=== PATIENT | female | born 1995 | race Caucasian/White ===

== ENCOUNTER 2017-10-26 10:49 | Emergency (ER) | payer OTHER, SELFPAY | END 2017-10-26 15:13 | disposition home or self-care (01) | PROVIDERS: Emergency Provider Emergency Medicine; Family Provider Physician Assistant; Visit Provider Emergency Medicine | DX: N83.202 Unspecified ovarian cyst, left side (principal); N83.201 Unspecified ovarian cyst, right side; K59.00 Constipation, unspecified; N30.00 Acute cystitis without hematuria; F17.210 Nicotine dependence, cigarettes, uncomplicated | CPT/HCPCS: 74177; 80053; 81001; 81025; 82150; 83690; 85025; 87086; 96365; 96375; Q9967 ==

== ENCOUNTER → 2017-11-13 12:46 | Outpatient (CLI) | payer OTHER, SELFPAY ==
[2017-11-14 20:10] LABS: Varicella Zoster IgG 837 index (Immune >165)
== END ==
PROVIDERS: PCP Physician Assistant; Visit Provider Nurse Practitioner Family
DX: Z11.59 Encounter for screening for other viral diseases (principal)
CPT/HCPCS: 36415; 86787

== ENCOUNTER → 2019-01-27 14:23 | Outpatient (CLI) | payer OTHER, SELFPAY ==
--- NOTE | 2019-01-27 14:28 | XR_ITS ---
XR wrist RT 2V HISTORY: Right wrist pain ITS.REASON: RT HAND PAIN, ORDERING PHYSICIAN: Cristy Pham PATIENT AGE: 23 years COMPARISON: None FINDINGS: No fracture or dislocation. No lytic or blastic change. There is normal mineralization.. The joint spaces are well-preserved. No significant degenerative/arthritic changes. No erosive changes evident.. IMPRESSION: Negative wrist
--- NOTE | 2019-01-27 14:28 | XR_ITS ---
XR hand RT min 3V HISTORY: ITS.REASON: RT HAND PAIN ORDERING PHYSICIAN: Cristy Pham PATIENT AGE: 23 years COMPARISON: None FINDINGS: No fracture or dislocation. No lytic or blastic change. There is normal mineralization.. The joint spaces are well-preserved. No significant degenerative/arthritic changes. No erosive changes evident.. IMPRESSION: Negative, no acute finding
== END ==
PROVIDERS: PCP Nurse Practitioner Family; Visit Provider Nurse Practitioner Family
DX: M25.541 Pain in joints of right hand (principal)
CPT/HCPCS: 73100; 73130

== ENCOUNTER → 2019-10-07 10:44 | Outpatient (CLI) | payer OTHER, SELFPAY ==
[2019-10-09 10:18] LABS: Neisseria gonorrhoeae, NAA Negative (Negative)
== END ==
PROVIDERS: Visit Provider Nurse Practitioner Obstetrics & Gynecology
DX: N89.8 Other specified noninflammatory disorders of vagina (principal); Z72.51 High risk heterosexual behavior
CPT/HCPCS: 87491; 87591

== ENCOUNTER → 2020-09-29 09:50 | Outpatient (CLI) | payer OTHER, SELFPAY ==
--- NOTE | 2020-09-29 10:08 | US_ITS ---
PROCEDURE: US BREAST LT COMPLETE CLINICAL INDICATION: LEFT BREAST LUMP COMPARISON: No exams were available for comparison FINDINGS: Ultrasound performed of the left breast showed no cystic or solid lesions. Small nodes are present in the axilla. Palpable area is the 11 o'clock. Echodense tissue noted at this area. IMPRESSION: Unremarkable ultrasound of the left breast. Ultrasound does not exclude the possibility of malignancy. If there is indeed a palpable nodule then further investigation is suggested. Dictated by: Vick Nelson MD 10/06/2020 18:46 Vick Nelson MD in [place] 10/06/2020 18:46
== END ==
PROVIDERS: PCP Nurse Practitioner Family; Visit Provider Nurse Practitioner
DX: N63.20 Unspecified lump in the left breast, unspecified quadrant (principal)
CPT/HCPCS: 76641

== ENCOUNTER → 2020-10-09 17:58 | Outpatient (CLI) | payer OTHER, SELFPAY ==
[2020-10-09 17:58] LABS: Microscopic, Urine URINE MICROSCOPIC (MICROSCOPIC)
[2020-10-09 19:09] LABS: Appearance,Urine CLEAR (Clear); Bilirubin,Urine Negative (Negative); Blood, Urine Negative (Negative); Color,Urine YELLOW (Yellow); Glucose,Urine (UA) Negative (Negative); Ketones,Urine Negative (Negative); Leukocyte Esterase,Urine Negative (Negative); Nitrate,Urine Negative (Negative); Protein,Urine Negative (Negative); Specific Gravity, Urine 1.015 (1.005-1.030); Urobilinogen,Urine 0.2 EU/dl (0.2)
== END ==
LOC: LAB 17:58 → LAB.DROPOF 10-10 07:53
PROVIDERS: Visit Provider Nurse Practitioner Obstetrics & Gynecology
DX: Z34.90 Encounter for supervision of normal pregnancy, unspecified, unspecified trimester (principal)
CPT/HCPCS: 81001

== ENCOUNTER → 2020-10-10 10:32 | Outpatient (CLI) | payer OTHER, SELFPAY ==
[2020-10-10 14:22] LABS: Basophils # 0.1 K/mm3 (0-0.2); Basophils % 0.8 % (0.1-2.0); Eosinophils # 0.3 K/mm3 (0.0-0.4); Eosinophils % 3.6 % (0.1-12.0); Hematocrit 38.8 % (37.0-47.0); Hemoglobin 13.4 g/dL (12.2-16.2); Lymphocytes # 2.3 K/mm3 (0.7-4.5); Lymphocytes % 26.2 % (10-50); Mean Corpuscular HGB Conc 34.6 g/dL (31.8-35.4); Mean Corpuscular Hemoglobin 31.3 pg (27.0-31.2); Mean Corpuscular Volume 90.6 fl (81-99); Mean Platelet Volume 8.4 fl (7.4-10.4); Monocytes # 0.5 K/mm3 (0.1-1.0); Monocytes % 5.9 % (1.7-9.3); Neutrophils # 5.6 K/mm3 (1.8-7.8); Neutrophils % 63.5 % (37.0-80.0); Platelet Count 324 K/mm3 (142-424); Red Blood Count 4.29 M/mm3 (4.20-5.40); Red Cell Distribution Width 12.5 % (11.5-17.5); White Blood Count 8.9 K/mm3 (4.8-10.8)
[2020-10-12 10:03] LABS: Hepatitis B Surface Antigen Negative (Negative); Hepatitis C Antibody <0.1 s/co ratio (0.0-0.9)
[2020-10-12 14:26] LABS: HIV Screen 4th Generation wRfx Non Reactive (Non Reactive); Rapid Plasma Reagin Ab Titer Non Reactive (NonRea<1:1); Rubella Antibodies, IgG <0.90 index (Immune >0.99)
== END ==
PROVIDERS: Visit Provider Nurse Practitioner Obstetrics & Gynecology
DX: Z34.90 Encounter for supervision of normal pregnancy, unspecified, unspecified trimester (principal)
CPT/HCPCS: 36415; 85025; 86592; 86703; 86762; 86850; 87340; 87380; G0432

== ENCOUNTER → 2020-11-28 14:59 | Outpatient (CLI) | payer OTHER, SELFPAY | PROVIDERS: Visit Provider Nurse Practitioner Obstetrics & Gynecology | DX: Z36.0 Encounter for antenatal screening for chromosomal anomalies (principal) | CPT/HCPCS: 36415 ==

== ENCOUNTER → 2020-12-13 14:55 | Outpatient (CLI) | payer OTHER, SELFPAY ==
--- NOTE | 2020-12-13 14:56 | US_ITS ---
PROCEDURE: US OB LIMITED POSITION CLINICAL INDICATION: US OB for DATES, pt is 14 weeks+in COMPARISON: None FINDINGS: There is a viable fetus with cephalic presentation. There is a posterior to marginal placenta. Cervical length is 3.8 centimeters. Gestational age by last menstrual. Fifteen weeks 5 days. Estimated age by ultrasound is 15 weeks 6 days. Biparietal diameter consistent with 15 weeks 6 days. OFD consistent with 16 weeks 0 days. Head circumference consistent with 15 weeks 5 days. Abdominal circumference consistent with 16 weeks 0 days. Femur length consistent with 15 weeks 5 days. Heart rate 155 beats per minute, high normal. Appropriate movement was seen during the ultrasound. Amniotic fluid volume appropriate. IMPRESSION: Estimated ultrasound age 15 weeks 6 days consistent with gestational age by last menstrual period of 15 weeks 5 days. Dictated by: Deepa Barnes MD 12/13/2020 17:36 Deepa Barnes MD in [place] 12/13/2020 17:36
== END ==
PROVIDERS: PCP Nurse Practitioner Family; Visit Provider Nurse Practitioner Obstetrics & Gynecology
DX: O26.842 Uterine size-date discrepancy, second trimester (principal)
CPT/HCPCS: 76815

== ENCOUNTER → 2021-01-17 13:56 | Outpatient (CLI) | payer OTHER, SELFPAY ==
--- NOTE | 2021-01-17 13:57 | US_ITS ---
PROCEDURE: US OB /MATERNAL DETAIL CLINICAL INDICATION: US OB Complete 20 wk + Anatomy Scan COMPARISON: US US OB LIMITED POSITION from 12/13/2020 FINDINGS: There is a single live fetus present in cephalic presentation. The cervix is closed measuring 4 cm in length. The placenta is posterior and grade 1 Complete survey performed and was unremarkable on the submitted images as in PACS. No discrete anomalies identified on survey imaging by technologist. Active fetus. Three-vessel cord with satisfactory umbilical cord insertion. 4- chamber heart noted. Survey of brain & ventricles Unremarkable. Face and neck survey unremarkable. Diaphragm and chest views unremarkable. Abdomen: Both kidneys noted and unremarkable. Stomach noted and satisfactory. Spine: Survey of the spine satisfactory with no anomalies identified nor imaged. Both arms and legs noted. Amniotic Fluid: Adequate. Maternal adnexa: No significant findings. Measurements: Average ultrasound age 21weeks. Gestational Age 20weeks 6days Estimated due date by ultrasound age 0805/30/2021. Estimated weight 402g BPD = 20weeks 6days OFD = 21weeks 1day HC = 20weeks 2days AC = 21weeks 4days FL = 21weeks Growth Percentile= 61Percent% Heart Rate = 144bpm Cerebellum = 21weeks 4days Humerus = 20weeks 6days HC/AC is 1.07 CI is 0.77 FL/BPD is 0.71 FL/AC is 0.21 IMPRESSION: Live IUP in cephalic presentation with an average ultrasound age of 21 weeks. No obvious anomalies. All parameters correlate. Please see above for detail. Dictated by: Vick Nelson MD 01/18/2021 11:59 Vick Nelson MD in [place] 01/18/2021 11:59
== END ==
PROVIDERS: PCP Nurse Practitioner Family; Visit Provider Nurse Practitioner Obstetrics & Gynecology
DX: Z36.0 Encounter for antenatal screening for chromosomal anomalies (principal); Z3A.20 20 weeks gestation of pregnancy
CPT/HCPCS: 76811

== ENCOUNTER → 2021-03-09 08:36 | Outpatient (CLI) | payer OTHER, SELFPAY ==
[2021-03-09 10:30] LABS: Glucose,Fasting 87 mg/dl (74-100)
[2021-03-09 12:51] LABS: Glucose 1 Hour 108 mg/dL (74-100)
== END ==
PROVIDERS: PCP Nurse Practitioner Family; Visit Provider Nurse Practitioner Obstetrics & Gynecology
DX: Z34.90 Encounter for supervision of normal pregnancy, unspecified, unspecified trimester (principal)
CPT/HCPCS: 36415; 82951

== ENCOUNTER → 2021-05-01 08:38 | Outpatient (CLI) | payer OTHER, SELFPAY | PROVIDERS: Visit Provider Nurse Practitioner Obstetrics & Gynecology | DX: Z34.90 Encounter for supervision of normal pregnancy, unspecified, unspecified trimester (principal); Z3A.35 35 weeks gestation of pregnancy | CPT/HCPCS: 86403 ==

== ENCOUNTER 2021-05-23 05:14 | Inpatient (IN) | payer OTHER, SELFPAY ==
[2021-05-23 05:39] VITALS: BP 114/65; PULSE 90; RESP 20; TEMP 36.6; O2SAT 99; BMI 29.2
[2021-05-23 07:16] VITALS: BP 112/59; PULSE 78; RESP 18; TEMP 36.7; O2SAT 99; BMI 29.6
[2021-05-23 08:00] LABS: Coronavirus 19, PCR Not Detected (NotDetected); Influenza A, PCR Not Detected (NotDetected); Influenza B, PCR Not Detected (NotDetected)
[2021-05-23 08:11] LABS: Basophils # 0.1 K/mm3 (0-0.2); Basophils % 0.6 % (0.1-2.0); Eosinophils # 0.3 K/mm3 (0.0-0.4); Hematocrit 34.4 % (37.0-47.0); Hemoglobin 11.6 g/dL (12.2-16.2); Lymphocytes # 2.6 K/mm3 (0.7-4.5); Lymphocytes % 15.9 % (10-50); Mean Corpuscular HGB Conc 33.5 g/dL (31.8-35.4); Mean Corpuscular Hemoglobin 29.3 pg (27.0-31.2); Mean Corpuscular Volume 87.5 fl (81-99); Mean Platelet Volume 8.2 fl (7.4-10.4); Monocytes # 0.9 K/mm3 (0.1-1.0); Monocytes % 5.3 % (1.7-9.3); Neutrophils # 12.5 K/mm3 (1.8-7.8); Neutrophils % 76.2 % (37.0-80.0); Platelet Count 317 K/mm3 (142-424); Red Blood Count 3.94 M/mm3 (4.20-5.40); Red Cell Distribution Width 13.5 % (11.5-17.5); White Blood Count 16.4 K/mm3 (4.8-10.8)
[2021-05-23 08:18] LABS: MANUAL DIFFERENTIAL MANUAL DIFFERENTIAL (MANUAL DIFF)
--- NOTE | 2021-05-23 08:30 | HMH.OBAPHP ---
OB - H&P: HPI Antepartum - History of Present Illness Chief complaint: Term History of present illness: She is a 26-year-old 2 para 1 at 39 weeks gestational age. She is uncomfortable and as result of that we have elected to induce her labor at term. - History of Present Criteria for establishing EDC:: LMP confirmed by 1st trimester US care: good care Ultrasounds: normal 1st trimester US, normal mid trimester US Obstetrical complications: none Medical complications: none - Labs Blood type: O (+) positive Rubella: nonimmune RPR/VDRL: nonreactive GBS status: negative HBsAG: negative [facility] History I have reviewed the patient's past medical history: Yes Medical History: Denies:: Diabetes Mellitus Type 1, Diabetes Mellitus Type 2 *Have you ever received a pneumonia vaccine?: No *Have you received a flu vaccine this season?: Yes Other Surgeries: Yes: No Previous Surgery. No: Amputation: No Fractures: No - *Social History Smoking Status: Current every day smoker Tobacco Type: cigarettes # Packs/Day (cigarettes): 1 #Yrs smoked (if former smoker): 8 Alcohol Intake: never Alcohol Intake Frequency:: holidays/special occasions only Substance Use Type: denies use *Occupational Status:: employed *Travel in the last 8 weeks: None Family Hx:: No significant family history PERSONAL LINES ADVISOR history: no No PERSONAL LINES ADVISOR history, no Non-contributory, no Spontaneous , no Therapeutic , no Cervical Cancer, no Abnormal Uterine Bleeding, no Ovarian Cancer, no dysfunctional uterine bleed, no Endometriosis, no Ectopic , no Polycystic Ovary Syndrome, no Uterine Fibroids, no Tubal Ligation, no , no Failure to Progress, no Additional PERSONAL LINES ADVISOR History Para: 1 Review of Systems - Review of Systems Review of systems:: pertinent systems reviewed and negative unless documented below Meds Home Medications Medication Instructions Recorded Confirmed Type PNV 153-FA 400 mcg-om3 35 mg-dha tab PO 10/09/20 05/22/21 History 25 mg-epa 5 mg-fish oil chew tablet ferrous sulfate 325 mg (65 mg 325 mg PO DAILY #30 tab 01/24/21 05/22/21 Rx iron) tablet citalopram 10 mg tablet See Rx Instructions .ROUTE 03/20/21 05/22/21 Rx .COMPLEX #30 tab Allergies Allergy/AdvReac Type Severity Reaction Status Date / Time No Known Allergies Allergy Verified 05/22/21 14:31 OB - H&P: Exam - Physical Exam Vital signs: Temp Pulse Resp BP Pulse Ox 98.0 F 78 18 112/59 L 99 05/23/21 07:16 05/23/21 07:16 05/23/21 07:16 05/23/21 07:16 05/23/21 07:16 - Constitutional no acute distress - Routine HEENT Exam Head: Present: normocephalic Eye: Present: EOMI, PERRL ENT: Present: mucous membranes moist - Routine Neck Exam Present: supple, full ROM - Routine Respiratory Exam Absent: accessory muscle use (good air entry bilaterally), respiratory distress, wheezes, crackles - Routine Cardiovascular Exam Present: RRR. Absent: murmur - Routine Abdominal Exam Present: soft, normoactive bowel sounds. Absent: tenderness, distended, guarding - Routine Rectal Exam Patient deferred: visual exam, digital exam - Routine Exam Patient deferred: external exam, groin exam, perineal exam - Routine Extremities Exam Present: full ROM. Absent: cyanosis, edema - Routine Skin Exam Present: intact. Absent: cyanosis - Routine Neurological Exam Present: alert, oriented X3 - Routine Psychiatric Exam Present: normal affect OB - Results - Labs Labs: Short CBC 05/23/21 Range/Units 07:40 WBC 16.4 H (4.8-10.8) K/mm3 Hgb 11.6 L (12.2-16.2) g/dL Hct 34.4 L (37.0-47.0) % Plt Count 317 (142-424) K/mm3 OB - A/P Antepartum (1) Normal delivery Status: Acute - Additional Plan Planning to breastfeed?: Yes Plan: induction Additional Information:: She is 39 weeks gestational age. She is feeling pressure and is uncomfortable.
[2021-05-23 08:33] LABS: Eosinophils % 2 % (0-3); Lymphocytes % 15 % (10-50); Monocytes % 4 % (2-9); Neutrophils % 79 % (42-76); Total Cells Counted 100
[2021-05-23 08:34] LABS: Platelet Estimate Normal; RBC Morphology Normal
--- NOTE | 2021-05-23 10:44 | HMH.LABNOT ---
Labor Note - Subjective: Date: 05/23/21 Time: 09:50 regular contraction - Objective: NST:: Reactive Contractions:: every 2-3 minutes Cervical Dilation:: 2 Effacement:: 50% Station: -1 Membranes: artificially ruptured - Fetus: Monitoring?: Yes monitoring type:: Internal and External Comment:: I inserted an IUPC after rupturing her membranes. - Assessment: Labor progressing?: Yes Cephalopelvic disproportion?: No Patient Problems: All Active Problems Normal delivery (Acute) Rubella non-immune status, antepartum (Acute) Tobacco smoking affecting (Acute) Depression affecting (Acute) (Acute) Viral syndrome (Acute) Encounter for IUD removal (Acute) - Plan: Anesthesia for epidural?: Yes Continue to labor down?: Yes Plan for ?: No Continue to monitor?: Yes Start pushing?: No
--- NOTE | 2021-05-23 13:25 | HMH.ANESCL ---
[facility] Anesthesia Checklist - Structural Data Admitted From: Inpatient Planned Operative Procedure/s: labor epidural Consent for Planned Operative Procedure(s) Verified: Yes - Airway Assessment C-Spine Mobility Assessed: Yes TMJ Mobility Assessed: Yes Dentition: Good Dentition - Neurological Assessment Level of Consciousness: Awake, Alert, Appropriate - Anesthesia Plan Anesthesia Risk discussed: Yes Anesthesia Plan: Verified ASA Class: II Anesthesia Type: Epidural [facility] History I have reviewed the patient's past medical history: Yes Medical History: Denies:: Diabetes Mellitus Type 1, Diabetes Mellitus Type 2 *Have you ever received a pneumonia vaccine?: No *Have you received a flu vaccine this season?: Yes Anesthesia experience/problems:: none Other Surgeries: Yes: No Previous Surgery. No: Amputation: No Fractures: No - *Social History Smoking Status: Current every day smoker Tobacco Type: cigarettes # Packs/Day (cigarettes): 1 #Yrs smoked (if former smoker): 8 Alcohol Intake: never Alcohol Intake Frequency:: holidays/special occasions only Substance Use Type: denies use *Occupational Status:: employed *Travel in the last 8 weeks: None Family Hx:: No significant family history ACCESS SPEC history: no No ACCESS SPEC history, no Non-contributory, no Spontaneous , no Therapeutic , no Cervical Cancer, no Abnormal Uterine Bleeding, no Ovarian Cancer, no dysfunctional uterine bleed, no Endometriosis, no Ectopic , no Polycystic Ovary Syndrome, no Uterine Fibroids, no Tubal Ligation, no , no Failure to Progress, no Additional ACCESS SPEC History Para: 1
--- NOTE | 2021-05-23 13:56 | HMH.LABNOT ---
Labor Note - Subjective: Date: 05/23/21 Time: 13:56 regular contraction - Objective: NST:: Reactive Contractions:: every 2-3 minutes Cervical Dilation:: 4 Effacement:: 90% Station: -1 Membranes: artificially ruptured - Fetus: Monitoring?: Yes monitoring type:: Internal and External - Assessment: Labor progressing?: Yes Cephalopelvic disproportion?: No Patient Problems: All Active Problems Normal delivery (Acute) Rubella non-immune status, antepartum (Acute) Tobacco smoking affecting (Acute) Depression affecting (Acute) (Acute) Viral syndrome (Acute) Encounter for IUD removal (Acute) - Plan: Anesthesia for epidural?: Yes Continue to labor down?: Yes Plan for ?: No Continue to monitor?: Yes Start pushing?: No
--- NOTE | 2021-05-23 20:37 | HMH.DN ---
- Delivery Note Delivery Date:: 05/23/21 Delivery Time:: 20:14 Anesthesia Type: Epidural Was labor medically induced?: Yes Induction method: per pitocin protocol Gestational age (weeks): 39 Infant delivered prior to 39 weeks?: No Infant Gender: Female at 1 minute: 2 at 5 minutes: 4 LAC or MLE?: LAC Delivery Procedure:: She is a 26-year-old 2 para 1 at 39 weeks gestational age. She came in for induction at term. She was having lots of pressure. She was started on IV oxytocin had her membranes ruptured. She progressed to full dilation and delivered spontaneously a liveborn female child at 8:14 PM in the evening of May 23, 2021. On deliver the head was noted there was a tight nuchal cord x2. I was able to deliver the rest the 's body and then the cord was reduced x2. The baby made some efforts and did cry but needs stimulation. We doubly clamped the cord and cut the cord. They was then placed on the warmer for further care. The baby required positive pressure ventilation and had of 2 at 1 minute 4 at 5 minutes and 9 at 10 minutes. I then obtained cord blood as well as cord pH. pH currently pending. She received IV oxytocin using gentle traction on the cord and countertraction the fundus I was able to easily deliver the placenta intact. It had a normal three-vessel cord. She had a small posterior vaginal tear that was repaired with a single [id number] 3-0 Vicryl Rapide suture. She had a right labial tear that was repaired with a single interrupted 3-0 Vicryl Rapide suture. She has O+ blood, she is rubella immune and was group B streptococcus negative. She plans to breast-feed. Her selling underwriter is Dr. Rosario. Estimated blood loss was approximately 300 cc. Laceration:: vaginal, labial Placental Delivery Description: Spontaneous
--- NOTE | 2021-05-23 20:45 | PC.NURSE ---
NOTIFIED HEATHER WYATT CRNA THAT PATIENT HAS DELIVERED.
[2021-05-23 20:47] LABS: Cord Blood PH 7.13 (7.35-7.45)
[2021-05-24 07:04] LABS: Hematocrit 32.7 % (37.0-47.0); Hemoglobin 11.1 g/dL (12.2-16.2)
--- NOTE | 2021-05-24 09:06 | HMH.ACPN2 ---
Internal Medicine - PN: Subj *Date: 05/24/21 *Time: 09:07 Interval history: She is doing well this morning. She is eating and drinking and ambulating. Her lochia is normal. She is breast-feeding. Exam Vital signs and Labs for Last 24 Hours: Temp Pulse Resp BP Pulse Ox 98.0 F 78 18 112/59 L 99 05/23/21 07:16 05/23/21 07:16 05/23/21 07:16 05/23/21 07:16 05/23/21 07:16 Laboratory Results - last 24 hr 05/23/21 20:42: Cord ABG pH 7.13 L* 05/24/21 06:30: Hgb 11.1 L, Hct 32.7 L I & O for Last 24 hours: Intake & Output 05/21/21 05/22/21 05/23/21 05/24/21 11:59 11:59 11:59 11:59 Output Total 500 / 500 Balance -500 / -500 Weight 178 lb - Constitutional no acute distress - *Routine HEENT Exam Head: Present: normocephalic Eye: Present: EOMI, PERRL ENT: Present: mucous membranes moist Assessment and Plan (1) Normal delivery Status: Acute Category: Medical Code(s): O80 - Encounter for full-term uncomplicated delivery - Assessment and plan all Dx Assessment and Plan for all problems:: She is doing well this morning. We will plan to send her home tomorrow.
[2021-05-24 20:08] VITALS: BP 111/52; PULSE 74; RESP 18; TEMP 37; O2SAT 96
[2021-05-25 04:31] VITALS: BP 117/58; PULSE 63; RESP 16; TEMP 36.7; O2SAT 98
--- NOTE | 2021-05-25 10:39 | P.DS_ITS ---
General - General Admission date:: 05/23/21 Discharge date: 05/25/21 HPI - History of Present Illness History of present illness: She is a 26-year-old 2 para 2 at 39 weeks gestational age. We brought her in for induction of labor at term. She was feeling lots of pressure. Hospital Course Hospital Course: She was started on IV oxytocin had her membranes ruptured. She progressed to full dilation and delivered spontaneously a liveborn female child at 8:14 PM in the evening of 23 May 2021. The baby weighed 6 pounds 12 ounces and had of 2 at 1 minute 4 at 5 minutes and 8 at 10 minutes. The baby had a tight nuchal cord x2. She has done well and has remained afebrile throughout her hospitalization. She is eating and drinking and ambulating. She is breast- feeding. Her lochia is normal. She is discharged home to follow-up with me in approximately 2 weeks time. She will continue with her vitamins and iron. She has a positive blood, s he is rubella immune and was group B streptococcus negative. Her painter helper is Dr. Rosario. Her condition on discharge is stable and improved. Rhogam Administration: Not Indicated Objective Vital signs: Temp Pulse Resp BP Pulse Ox 98.1 F 63 16 117/58 L 98 05/25/21 04:31 05/25/21 04:31 05/25/21 04:31 05/25/21 04:31 05/25/21 04:31 no acute distress - *Routine HEENT Exam Head: Present: normocephalic Eye: Present: EOMI, PERRL ENT: Present: mucous membranes moist - *Routine Neck Exam Present: supple - *Routine Respiratory Exam Present: CTA bilaterally - *Routine Cardiovascular Exam Present: RRR - *Routine Abdominal Exam Present: soft, normoactive bowel sounds. Absent: tenderness - *Routine Extremities Exam Absent: cyanosis, clubbing, edema - *Routine Skin Exam Present: warm. Absent: rash - Detailed Eye Exam Eyelids: Bilateral normal inspection DS: Diagnosis - Discharge Diagnosis (1) Normal delivery Status: Acute Discharge Plan - Patient Discharge Instructions ACTIVITY: No heavy lifting DIET: continue same diet Additional Instructions: Drink plenty of fluids Nothing in the vagina for 6 weeks No tub baths No heavy lifting or strenuous activity Patient Instructions: Depression, Hemorrhage, DI for Labor and Delivery, Vaginal , DI for Pre-eclampsia, [facility] Post Discharge Instructions, Preventing the Spread of Coronavirus Discharge Instructions - Follow up Plan Follow up with: Max Whyte MD [Staff Physician] - Disposition: Home, Self-Care Condition at discharge:: Stable Home Medications: Home Medications Medication Instructions Recorded Confirmed Type PNV 153-FA 400 mcg-om3 35 mg-dha 1 tab PO DAILY 10/09/20 05/23/21 History 25 mg-epa 5 mg-fish oil chew tablet Citalopram Hydrobromide [Celexa] 10 mg PO DAILY 05/23/21 05/23/21 History Ferrous Sulfate 325 mg PO DAILY 05/23/21 05/23/21 History Prescriptions/Medication Reconciliation: Continued PNV 153-FA 400 mcg-om3 35 mg-dha 25 mg-epa 5 mg-fish oil chew tablet 1 tab PO DAILY Ferrous Sulfate 325 mg PO DAILY Citalopram Hydrobromide [Celexa] 10 mg PO DAILY - Problem Reconciliation Problems Reviewed?: Yes
== END 2021-05-25 14:35 | disposition home or self-care (01) | DRG 807 ==
PROVIDERS: Admitting Provider Nurse Practitioner Obstetrics & Gynecology; PCP Nurse Practitioner Family; Visit Provider Nurse Practitioner Obstetrics & Gynecology
DX: O70.0 First degree perineal laceration during delivery (principal); Z37.0 Single live birth; Z3A.39 39 weeks gestation of pregnancy; O69.81X0 Labor and delivery complicated by cord around neck, without compression, not applicable or unspecified; O99.333 Smoking (tobacco) complicating pregnancy, third trimester; F17.210 Nicotine dependence, cigarettes, uncomplicated
CPT/HCPCS: 59409; 59025; 82800; 85007; 85014; 85018; 85025; 86850; 90707; 94761; C1758; G0283; U0003

== ENCOUNTER → 2021-12-19 13:27 | Outpatient (CLI) | payer OTHER, SELFPAY ==
[2021-12-19 14:48] LABS: HCG,Quantitative > 15000 mIU/ml (0-5.42)
== END ==
PROVIDERS: Visit Provider Nurse Practitioner Obstetrics & Gynecology
DX: N92.6 Irregular menstruation, unspecified (principal)
CPT/HCPCS: 36415; 84702

== ENCOUNTER → 2022-01-14 14:39 | Outpatient (CLI) | payer OTHER, SELFPAY ==
[2022-01-14 15:47] LABS: Basophils # 0.1 K/mm3 (0-0.2); Basophils % 0.9 % (0.1-2.0); Eosinophils # 0.6 K/mm3 (0.0-0.4); Eosinophils % 5.3 % (0.1-12.0); Hematocrit 36.8 % (37.0-47.0); Hemoglobin 12.4 g/dL (12.2-16.2); Lymphocytes # 2.1 K/mm3 (0.7-4.5); Lymphocytes % 19.5 % (10-50); Mean Corpuscular HGB Conc 33.7 g/dL (31.8-35.4); Mean Corpuscular Hemoglobin 29.8 pg (27.0-31.2); Mean Corpuscular Volume 88.4 fl (81-99); Mean Platelet Volume 8.6 fl (7.4-10.4); Monocytes # 0.6 K/mm3 (0.1-1.0); Monocytes % 5.2 % (1.7-9.3); Neutrophils # 7.6 K/mm3 (1.8-7.8); Neutrophils % 69.1 % (37.0-80.0); Platelet Count 318 K/mm3 (142-424); Red Blood Count 4.16 M/mm3 (4.20-5.40); Red Cell Distribution Width 13.8 % (11.5-17.5)
[2022-01-16 08:36] LABS: HIV Screen 4th Generation wRfx Non Reactive (Non Reactive); HSV 2 IgG, Type Spec <0.91 index (0.00-0.90); Hepatitis B Surface Antigen Negative (Negative); Hepatitis C Antibody 0.1 s/co ratio (0.0-0.9); Rubella Antibodies, IgG 2.37 index (Immune >0.99)
[2022-01-16 12:14] LABS: Rapid Plasma Reagin Ab Titer Non Reactive (NonRea<1:1)
== END ==
PROVIDERS: PCP Nurse Practitioner Family; Visit Provider Nurse Practitioner Obstetrics & Gynecology
DX: Z34.90 Encounter for supervision of normal pregnancy, unspecified, unspecified trimester (principal)
CPT/HCPCS: 36415; 85025; 86592; 86695; 86703; 86762; 86790; 86850; 87340; 87380; G0432

== ENCOUNTER → 2022-01-18 12:46 | Outpatient (CLI) | payer OTHER, SELFPAY ==
--- NOTE | 2022-01-18 12:50 | US_ITS ---
FINAL REPORT CLINICAL HISTORY: US OB Before 14 wks for DATES/Confirmation FINDINGS: Sonographic images of the pelvis were obtained. A single, living intrauterine is noted. A yolk sac is present and measures 0.63 cm. [place] to rump length measures 5.4 cm which corresponds to 12 weeks 1 day gestation. Heartbeat is identified and measures 165 beats per minute. The right ovary is within normal limits. The left ovary is within normal limits. IMPRESSION: Single, living, intrauterine gestation with 12 weeks 1 day gestational age. Reviewed, Interpreted and Dictated by Pb Bruno MD Transcribed by Karol Chun Authenticated by Pb Bruno MD on 01/18/2022 02:43:36 PM [facility]
== END ==
PROVIDERS: PCP Nurse Practitioner Family; Visit Provider Nurse Practitioner Obstetrics & Gynecology
DX: O26.841 Uterine size-date discrepancy, first trimester (principal)
CPT/HCPCS: 76801

== ENCOUNTER → 2022-01-21 16:51 | Outpatient (CLI) | payer OTHER, SELFPAY | PROVIDERS: PCP Nurse Practitioner Family; Visit Provider Nurse Practitioner Obstetrics & Gynecology | DX: Z31.430 Encounter of female for testing for genetic disease carrier status for procreative management (principal); Z36.0 Encounter for antenatal screening for chromosomal anomalies; O28.3 Abnormal ultrasonic finding on antenatal screening of mother | CPT/HCPCS: 36415 ==

== ENCOUNTER → 2022-03-15 13:40 | Outpatient (CLI) | payer OTHER, SELFPAY ==
--- NOTE | 2022-03-15 13:41 | US_ITS ---
FINAL REPORT CLINICAL HISTORY: 20 weeks gestation FINDINGS: There is a single live intrauterine gestation. Presentation is cephalic. Placenta is posterior. Cardiac activity is confirmed at 149 bpm. The fetus is active. Four-chamber heart is noted. brain and ventricles are unremarkable. Chest and diaphragm are unremarkable. ABDOMEN: Both kidneys are unremarkable. Stomach is unremarkable. SPINE: No anomalies identified. Both arms and legs noted. AMNIOTIC FLUID: Appropriate amount. MEASUREMENTS: ULTRASOUND AGE: 20 weeks 0 days. GESTATION AGE: 20 weeks 1 days. ESTIMATED WEIGHT: 320 g GROWTH PERCENTILE: 32% BPD: 4.7 cm consistent with 20 weeks 1 days. OFD: 5.9 cm consistent with 20 weeks 2 days. HC: 16.7 cm consistent with 19 weeks 3 days. AC: 14.6 cm consistent with 20 weeks 0 days. FL: 3.2 cm consistent with 20 weeks 1 days. CEREBELLUM: 2 cm consistent with 20 weeks 2 days. HUMERUS: 3.1 cm consistent with 20 weeks 2 days. Nuchal fold: 2.11 mm HC/AC: 1.15 CI: 79% FL/BPD: 69% FL/AC: 22% IMPRESSION: Single living IUP with an ultrasound age of 20 weeks 0 days. Reviewed, Interpreted and Dictated by Josiah Cadena III, MD Transcribed by Davy Rosas Authenticated by Josiah Cadena III, MD on 03/15/2022 03:48:33 PM [facility]
== END ==
PROVIDERS: PCP Nurse Practitioner Family; Visit Provider Nurse Practitioner Obstetrics & Gynecology
DX: Z36.0 Encounter for antenatal screening for chromosomal anomalies (principal); Z3A.20 20 weeks gestation of pregnancy
CPT/HCPCS: 76811

== ENCOUNTER → 2022-05-06 09:27 | Outpatient (CLI) | payer OTHER, SELFPAY ==
[2022-05-06 10:08] LABS: Glucose,Fasting 94 mg/dl (74-100)
[2022-05-06 11:42] LABS: Glucose 1 Hour 124 mg/dL (74-100)
== END ==
PROVIDERS: PCP Nurse Practitioner Family; Visit Provider Nurse Practitioner Obstetrics & Gynecology
DX: Z34.90 Encounter for supervision of normal pregnancy, unspecified, unspecified trimester (principal)
CPT/HCPCS: 36415; 82951

== ENCOUNTER → 2022-07-10 09:59 | Outpatient (CLI) | payer OTHER, SELFPAY ==
--- NOTE | 2022-07-10 09:59 | US_ITS ---
FINAL REPORT CLINICAL HISTORY: sga, breech position FINDINGS: There is a single live intrauterine gestation. Presentation is cephalic. Placenta is posterior, high. Heart rate is 155 beats per minute. AMNIOTIC FLUID: Appropriate amount. LUANNE: 16.0 S/D ratio: 2.24 MEASUREMENTS: ULTRASOUND AGE: 36 weeks 0 days. GESTATION AGE: 36 weeks 6 days. ESTIMATED WEIGHT: 2902 g GROWTH PERCENTILE: 40% LMP percentile BPD: 8.7 cm corresponding with 35 weeks 1 days. OFD: 11.1 cm corresponding with 36 weeks 0 days. HC: 31.3 cm corresponding with 35 weeks 1 days. AC: 32.9 cm corresponding with 36 weeks 6 days. FL: 7.1 cm corresponding with 36 weeks 4 days. HC/AC: 0.95 CI: 78% FL/BPD: 82% FL/AC: 22% BIOPHYSICAL PROFILE Breathin/2 Movement: 2/2 Tone: 2/2 Fluid volume: 2/2 BPP: 06/03 IMPRESSION: Single living IUP with an ultrasound age of 36 weeks 0 days. LUANNE of 16.0 cm BPP: 06/03 Reviewed, Interpreted and Dictated by Josiah Cadena III, MD Transcribed by Karol Chun Authenticated and [facility]
== END ==
PROVIDERS: PCP Nurse Practitioner Family; Visit Provider Nurse Practitioner Obstetrics & Gynecology
DX: O32.1XX0 Maternal care for breech presentation, not applicable or unspecified (principal); O36.5990 Maternal care for other known or suspected poor fetal growth, unspecified trimester, not applicable or unspecified
CPT/HCPCS: 76816; 76819; 76820

== ENCOUNTER → 2022-07-10 17:21 | Outpatient (CLI) | payer OTHER, SELFPAY | PROVIDERS: PCP Nurse Practitioner Obstetrics & Gynecology; Visit Provider Nurse Practitioner Obstetrics & Gynecology | DX: Z3A.35 35 weeks gestation of pregnancy; Z34.90 Encounter for supervision of normal pregnancy, unspecified, unspecified trimester | CPT/HCPCS: 86403 ==

== ENCOUNTER 2022-07-30 05:41 | Inpatient (IN) | payer OTHER, SELFPAY ==
[2022-07-30 06:05] VITALS: BMI 30.4
[2022-07-30 06:28] LABS: Coronavirus 19, PCR Not Detected (NotDetected); Influenza A, PCR Not Detected (NotDetected); Influenza B, PCR Not Detected (NotDetected)
[2022-07-30 06:28] LABS: Microscopic, Urine URINE MICROSCOPIC (MICROSCOPIC)
[2022-07-30 06:33] LABS: Appearance,Urine CLEAR (Clear); Bilirubin,Urine Negative (Negative); Blood, Urine Negative (Negative); Color,Urine YELLOW (Yellow); Glucose,Urine (UA) Negative (Negative); Ketones,Urine Negative (Negative); Leukocyte Esterase,Urine Negative (Negative); Nitrate,Urine Negative (Negative); PH,Urine 6.5 (5.0-8.5); Protein,Urine Negative (Negative); Specific Gravity, Urine 1.025 (1.005-1.030); Urobilinogen,Urine 0.2 EU/dl (0.2)
[2022-07-30 06:33] LABS: Basophils # 0.1 K/mm3 (0-0.2); Basophils % 0.8 % (0.1-2.0); Eosinophils # 0.3 K/mm3 (0.0-0.4); Eosinophils % 2.5 % (0.1-12.0); Hematocrit 32.4 % (37.0-47.0); Lymphocytes # 2.1 K/mm3 (0.7-4.5); Lymphocytes % 17.2 % (10-50); Mean Corpuscular HGB Conc 34.1 g/dL (31.8-35.4); Mean Corpuscular Hemoglobin 30.4 pg (27.0-31.2); Mean Corpuscular Volume 89.1 fl (81-99); Mean Platelet Volume 8.3 fl (7.4-10.4); Monocytes # 0.8 K/mm3 (0.1-1.0); Monocytes % 6.6 % (1.7-9.3); Neutrophils # 8.9 K/mm3 (1.8-7.8); Platelet Count 301 K/mm3 (142-424); Red Blood Count 3.63 M/mm3 (4.20-5.40); Red Cell Distribution Width 14.6 % (11.5-17.5); White Blood Count 12.2 K/mm3 (4.8-10.8)
[2022-07-30 06:47] LABS: Amphetamine/Metha Screen,Urine Negative ng/ml (<1000); Barbiturates Screen,Urine Negative ng/ml (<200)
[2022-07-30 06:48] LABS: Benzodiazepines Screen,Urine Negative ng/ml (<200)
[2022-07-30 06:49] LABS: Cannabinoid Screen,Urine Negative ng/ml (<50); Cocaine Screen,Urine Negative ng/ml (<300)
[2022-07-30 06:50] LABS: Methadone Screen,Urine Negative ng/ml (<300)
[2022-07-30 06:51] LABS: Opiate Screen,Urine Negative ng/ml (<300); Phencyclidine Screen,Urine Negative ng/ml (<25)
[2022-07-30 06:57] LABS: Bacteria,Urine Trace /lpf; Mucus,Urine Trace /lpf; WBC,Urine Occasional #/hpf (0-3)
--- NOTE | 2022-07-30 07:31 | EXP.LABOR.NO ---
Labor Note Subjective: Date: 07/30/22 Time: 07:31 irregular contractions Objective: NST:: Reactive Contractions:: every 4-5 minutes Cervical Dilation:: 2-3 Effacement:: 75% Station: -1 Membranes: intact Fetus: Monitoring?: Yes monitoring type:: External Assessment: Labor progressing?: Yes Cephalopelvic disproportion?: No All Active Problems (Updated 07/10/22 @ 11:41 by Max Whyte MD) Tobacco use (Acute) (Acute) Rubella non-immune status, antepartum (Acute) Plan: Anesthesia for epidural?: No Continue to labor down?: Yes Plan for ?: No Continue to monitor?: Yes Start pushing?: No
[2022-07-30 08:08] VITALS: BP 116/56; PULSE 84; RESP 18; TEMP 36.8; O2SAT 100; BMI 30.4
--- NOTE | 2022-07-30 08:57 | EXP.LABOR.NO ---
Labor Note Subjective: Date: 07/30/22 Time: 08:40 regular contraction Objective: NST:: Reactive Contractions:: every 2-3 minutes Cervical Dilation:: 3 Effacement:: 75% Station: -1 Membranes: artificially ruptured Comment:: I ruptured her membranes and there was clear fluid. Fetus: Monitoring?: Yes monitoring type:: Internal and External Assessment: Labor progressing?: Yes Cephalopelvic disproportion?: No All Active Problems (Updated 07/10/22 @ 11:41 by Max Whyte MD) Tobacco use (Acute) (Acute) Rubella non-immune status, antepartum (Acute) Plan: Anesthesia for epidural?: No Continue to labor down?: Yes Plan for ?: No Continue to monitor?: Yes Start pushing?: No Comment:: She is doing well. The nonstress test is reactive. I inserted an IUPC.
--- NOTE | 2022-07-30 08:58 | EXP.HP ---
History of Present Illness *Admission Date: 07/30/22 *Reason for visit:: Term , previous vaginal deliveries *History of present illness: She is a 27-year-old 3 para 2 at 39 weeks gestational age. She has had 2 previous vaginal deliveries and was having some pressure. As result of that she requested induction at term. [facility] Social History Smoking Status: Current every day smoker tobacco type: cigarettes packs per day: 1 alcohol intake: never substance use type: denies use current occupational status: employed Travel in the last 8 weeks: None Review of Systems Review of Systems Review of systems:: pertinent systems reviewed and negative unless documented below Meds Home Medications and Allergies Home Medications Medication Instructions Recorded Confirmed Type PNV 153-FA 400 mcg-om3 35 mg-dha 1 tab PO DAILY supplement 10/09/20 07/23/22 History 25 mg-epa 5 mg-fish oil chew tablet ( Gummies) citalopram 20 mg tablet See Rx Instructions .Route 02/28/22 07/23/22 Rx .COMPLEX #30 tabs New Prescriptions to Start Prescriptions: Allergies Allergy/AdvReac Type Severity Reaction Status Date / Time No Known Allergies Allergy Verified 07/19/22 13:55 Exam Data for Last 24 hours Vital signs and Labs for Last 24 Hours: Temp Pulse Resp BP Pulse Ox 98.3 F 84 18 116/56 L 100 07/30/22 08:08 07/30/22 08:08 07/30/22 08:08 07/30/22 08:08 07/30/22 08:08 Laboratory Results - last 24 hr 07/30/22 06:10: Urine Color Yellow, Urine Appearance Clear, Urine pH 6.5, Ur Specific [place] 1.025, Urine Protein Negative, Urine Glucose (UA) Negative, Urine Ketones Negative, Urine Blood Negative, Urine Nitrate Negative, Urine Bilirubin Negative, Urine Urobilinogen 0.2, Ur Leukocyte Esterase Negative, Urine RBC None, Urine WBC Occasional, Ur Squamous Epith Cells 3-5, Urine Bacteria Trace, Urine Mucus Trace 07/30/22 06:10: Urine Opiates Screen Negative, Urine Methadone Screen Negative, Ur Barbituates Screen Negative, Ur Phencyclidine Scrn Negative, Ur Amphetamines Screen Negative, U Benzodiazepines Scrn Negative, Urine Cocaine Screen Negative, U Marijuana (THC) Screen Negative 07/30/22 06:15: WBC 12.2 H, RBC 3.63 L, Hgb 11.0 L, Hct 32.4 L, MCV 89.1, MCH 30.4, MCHC 34.1, RDW 14.6, Plt Count 301, MPV 8.3, Neut % (Auto) 73.0, Lymph % (Auto) 17.2, [place] % (Auto) 6.6, Eos % (Auto) 2.5, Baso % (Auto) 0.8, Neut # (Auto) 8.9 H, Lymph # (Auto) 2.1, [place] # (Auto) 0.8, Eos # (Auto) 0.3, Baso # (Auto) 0.1 07/30/22 06:15: Blood Type O Positive, Antibody Screen Negative 07/30/22 06:20: SARS-CoV-2 (PCR) Not detected, Influenza A Untype (PCR) Not detected, Influenza Type B (PCR) Not detected I & O for Last 24 hours: Intake & Output 07/27/22 07/28/22 07/29/22 07/30/22 11:59 11:59 11:59 11:59 Weight 183 lb Constitutional Constitutional: no acute distress *Routine HEENT Exam Head: Present normocephalic Eye: Present EOMI and PERRL ENT: Present mucous membranes moist *Routine Neck Exam Neck: Present supple and full ROM *Routine Respiratory Exam Respiratory: Absent accessory muscle use (good air entry bilaterally), wheezes or crackles *Routine Cardiovascular Exam Cardiovascular: Present RRR; Absent murmur *Routine Abdominal Exam Abdominal: Present soft and normoactive bowel sounds; Absent tenderness, rebound, guarding or mass *Routine Rectal Exam Rectal:: deferred *Routine Genitalia Exam Genitalia:: normal female *Routine Extremities Exam Extremities: Present full ROM; Absent cyanosis, edema or calf tenderness *Routine Skin Exam Skin: Present intact (good color) *Routine Neurological Exam Neurological: Present alert and oriented X3 Routine Psychiatric Exam Psychiatric: Present normal affect Detailed Rectal Exam Patient deferred: visual exam and digital exam Detailed Exam Patient deferred: external exam, groin exam and perineal
--- NOTE | 2022-07-30 11:43 | P.PN_ITS ---
[facility] Social History Smoking Status: Current every day smoker tobacco type: cigarettes packs per day: 1 alcohol intake: never substance use type: denies use current occupational status: employed Travel in the last 8 weeks: None [facility] Anesthesia Checklist Patient Identification Patient Identification: Arm Band Structural Data Admitted From: Inpatient Planned Operative Procedure/s: Labor Epidural Consent for Planned Operative Procedure(s) Verified: Yes Verified Documents: Surgical Consent and History and Physical NPO Status Verified Time NPO: 00:00 Additional verifications Anesthesia Reactions: No Airway Assessment C-Spine Mobility Assessed: Yes TMJ Mobility Assessed: Yes Dentition: Good Dentition Neurological Assessment Level of Consciousness: Awake and Alert Anesthesia Plan Anesthesia Risk discussed: Yes Anesthesia Plan: Verified ASA Class: II Anesthesia Type: Epidural
--- NOTE | 2022-07-30 12:02 | EXP.LABOR.NO ---
Labor Note Subjective: Date: 07/30/22 Time: 12:02 regular contraction Objective: NST:: Reactive Contractions:: every 2-3 minutes Cervical Dilation:: 6 Effacement:: 90% Station: -1 Membranes: artificially ruptured Fetus: Monitoring?: Yes monitoring type:: Internal and External Assessment: Labor progressing?: Yes Cephalopelvic disproportion?: No All Active Problems (Updated 07/30/22 @ 09:00 by Max Whyte MD) Term delivered (Acute) Tobacco use (Acute) (Acute) Rubella non-immune status, antepartum (Acute) Plan: Anesthesia for epidural?: Yes Continue to labor down?: Yes Plan for ?: No Continue to monitor?: Yes Start pushing?: No
--- NOTE | 2022-07-30 13:46 | EXP.LABOR.NO ---
Labor Note Subjective: Date: 07/30/22 Time: 13:46 regular contraction Objective: NST:: Reactive Contractions:: every 2-3 minutes Cervical Dilation:: 9-10 Effacement:: 100% Station: +2 Membranes: artificially ruptured Fetus: Monitoring?: Yes monitoring type:: Internal and External Assessment: Labor progressing?: Yes Cephalopelvic disproportion?: No All Active Problems (Updated 07/30/22 @ 09:00 by Max Whyte MD) Term delivered (Acute) Tobacco use (Acute) (Acute) Rubella non-immune status, antepartum (Acute) Plan: Anesthesia for epidural?: Yes Continue to labor down?: Yes Plan for ?: No Continue to monitor?: Yes Start pushing?: Yes
--- NOTE | 2022-07-30 16:16 | EXP.DN ---
Delivery Note Delivery Date:: 07/30/22 Delivery Time:: 14:06 Anesthesia Type: Epidural Was labor medically induced?: Yes Induction method: per pitocin protocol Gestational age (weeks): 39 delivered prior to 39 weeks?: No Infant Gender: Female at 1 minute: 9 at 5 minutes: 9 LAC or MLE?: LAC Delivery Procedure:: She is a 27-year-old 3 para 2 at 39 weeks gestational age. She was feeling some pressure and was uncomfortable so she elected to have induction of labor. She was started on IV oxytocin had her membranes ruptured. Under labor epidural she progressed to full dilation and delivered spontaneously a liveborn female child at 2:06 PM in the afternoon of July 30, 2022. On delivery the head the anterior shoulder then easily delivered followed by the rest the infant's body atraumatically. The baby was vigorous. The oropharynx and nasopharynx were bulb suction. We allowed the cord to continue to pulsate for approximately 1 minute. The cord was then doubly clamped and cut and the infant was placed on the mother's abdomen for further care. The nurses assigned Apgars of 9 at 1 minute and 9 at 5 minutes. We then obtained cord blood. She received IV oxytocin using gentle traction on the cord and countertraction on the fundus I was able to easily deliver the placenta intact. It had a normal three-vessel cord. She had a small first-degree perineal laceration that was repaired with interrupted 3-0 Vicryl Rapide suture. She has O+ blood, she is rubella immune and was group B streptococcus negative. She plans to breast-feed. Estimated blood loss was approximately 200 cc. Laceration:: vaginal Placental Delivery Description: Spontaneous
[2022-07-31 06:45] LABS: Hematocrit 30.6 % (37.0-47.0); Hemoglobin 9.9 g/dL (12.2-16.2)
--- NOTE | 2022-07-31 09:16 | HMH.PHAINT1 ---
Pharmacy Intervention Comments: MEDICATION RECONCILIATION COMPLETE USING LIST FROM MOST RECENT MD OFFICE VISIT, EXTERNAL PHARMACY FILL HISTORY.
--- NOTE | 2022-07-31 09:36 | EXP.DC.SUM ---
General Admission date:: 07/30/22 Discharge date: 07/31/22 HPI HPI HPI: She is a 27-year-old 3 para 2 at 39 weeks gestational age. She has had 2 previous vaginal deliveries and was having some pressure. As result of that she requested induction at term. Hospital Course Hospital Course Hospital Course: She was started on IV oxytocin had her membranes ruptured. Under labor epidural she progressed to full dilation and delivered spontaneously a liveborn female child at 2:06 PM in the afternoon of July 30, 2022. The baby weighed 8 pounds 7 ounces and had Apgars of 9 at 1 minute and 9 at 5 minutes. She had a small first-degree perineal laceration. She has done well and has remained afebrile throughout her hospitalization. She is eating and drinking and ambulating. She is breast-feeding. She has O+ blood, she is rubella immune and was group B streptococcus negative. She is discharged home to follow-up with me in approximately 2 weeks time. She will continue with her vitamins and iron. She is given the usual instructions with respect to limiting her activity, driving and sexual activity. Exam Data for Last 24 hours Vital signs and Labs for Last 24 Hours: Temp Pulse Resp BP Pulse Ox 98.3 F 84 18 116/56 L 100 07/30/22 08:08 07/30/22 08:08 07/30/22 08:08 07/30/22 08:08 07/30/22 08:08 Laboratory Results - last 24 hr 07/31/22 06:30: Hgb 9.9 L, Hct 30.6 L I & O for Last 24 hours: Intake & Output 07/28/22 07/29/22 07/30/22 07/31/22 11:59 11:59 11:59 11:59 Weight 183 lb Constitutional Constitutional: no acute distress *Routine HEENT Exam Head: Present normocephalic Results Data Completed and Pending Labs on day of discharge: Labs from last 24 hours 07/31/22 06:30 Hgb 9.9 L Hct 30.6 L DS: Diagnosis Discharge Diagnosis (1) Tobacco use: Status: Acute (2) Rubella non-immune status, antepartum: Status: Acute (3) Term delivered: Status: Acute Meds Home Medications and Allergies Home Medications Medication Instructions Recorded Confirmed Type PNV 153-FA 400 mcg-om3 35 mg-dha 1 tab PO DAILY supplement 10/09/20 07/31/22 History 25 mg-epa 5 mg-fish oil chew tablet ( Gummies) citalopram 20 mg tablet 20 mg PO DAILY Depression 07/30/22 07/30/22 History New Prescriptions to Start Prescriptions: Allergies Allergy/AdvReac Type Severity Reaction Status Date / Time No Known Allergies Allergy Verified 07/19/22 13:55 Discharge Plan Disposition Patient Disposition: Home, Self-Care Discharge Order Discharge Orders: Discharge Order (Routine); Ordered 07/31/22 Ordered By: Max Whyte Follow up Plan Prescriptions/Medication Reconciliation: Continued Gummies 400 mcg-35 mg- 25 mg-5 mg tablet,chewable 1 tab PO DAILY citalopram 20 mg tablet 20 mg PO DAILY Problem Reconciliation Problems Reviewed?: Yes Providers Primary Care Provider: Cristy Pham Admit Provider: Max Whyte Attending Provider: Max Whyte
== END 2022-07-31 17:40 | disposition home or self-care (01) | DRG 807 ==
PROVIDERS: Admitting Provider Nurse Practitioner Obstetrics & Gynecology; PCP Nurse Practitioner Family; Visit Provider Nurse Practitioner Obstetrics & Gynecology
DX: O70.0 First degree perineal laceration during delivery (principal); Z37.0 Single live birth; Z3A.39 39 weeks gestation of pregnancy
CPT/HCPCS: 59409; 36415; 59025; 80305; 81001; 85014; 85018; 85025; 86850; 94761; C1758; C9803; G0283; U0003; U0005

== ENCOUNTER → 2023-07-31 16:38 | Outpatient (CLI) | payer OTHER, SELFPAY ==
[2023-07-31 18:07] LABS: HCG,Quantitative 12847 mIU/ml (0-5.42)
== END ==
PROVIDERS: PCP Nurse Practitioner Family; Visit Provider Nurse Practitioner Obstetrics & Gynecology
DX: N92.6 Irregular menstruation, unspecified (principal); Z32.00 Encounter for pregnancy test, result unknown
CPT/HCPCS: 36415; 84144; 84702

== ENCOUNTER → 2023-08-11 11:45 | Outpatient (CLI) | payer OTHER, SELFPAY ==
[2023-08-11 13:08] LABS: Basophils # 0.1 K/mm3 (0-0.2); Basophils % 0.5 % (0.1-2.0); Eosinophils # 0.4 K/mm3 (0.0-0.4); Eosinophils % 3.7 % (0.1-12.0); Hemoglobin 13.4 g/dL (12.2-16.2); Lymphocytes # 2.3 K/mm3 (0.7-4.5); Lymphocytes % 23.8 % (10-50); Mean Corpuscular HGB Conc 34.3 g/dL (31.8-35.4); Mean Corpuscular Hemoglobin 29.8 pg (27.0-31.2); Mean Corpuscular Volume 86.9 fl (81-99); Mean Platelet Volume 8.3 fl (7.4-10.4); Monocytes # 0.5 K/mm3 (0.1-1.0); Monocytes % 4.8 % (1.7-9.3); Neutrophils # 6.6 K/mm3 (1.8-7.8); Neutrophils % 67.3 % (37.0-80.0); Platelet Count 329 K/mm3 (142-424); Red Blood Count 4.49 M/mm3 (4.20-5.40); Red Cell Distribution Width 13.4 % (11.5-17.5); White Blood Count 9.8 K/mm3 (4.8-10.8)
[2023-08-12 06:16] LABS: Rubella Antibodies, IgG 1.81 index (Immune >0.99)
[2023-08-12 10:38] LABS: Rapid Plasma Reagin Ab Titer Non Reactive titer (NonRea<1:1)
[2023-08-16 10:14] LABS: HIV Screen 4th Generation wRfx Non Reactive; Hepatitis B Surface Antigen Negative
[2023-08-16 10:15] LABS: Hepatitis C Antibody Non Reactive
== END ==
PROVIDERS: PCP Nurse Practitioner Family; Visit Provider Nurse Practitioner Obstetrics & Gynecology
DX: Z34.91 Encounter for supervision of normal pregnancy, unspecified, first trimester (principal); Z3A.01 Less than 8 weeks gestation of pregnancy
CPT/HCPCS: 36415; 85025; 86593; 86703; 86762; 86850; 87086; 87340; 87380; G0432

== ENCOUNTER → 2023-08-11 23:28 | Outpatient (CLI) | payer OTHER, SELFPAY | PROVIDERS: PCP Nurse Practitioner Family; Visit Provider Nurse Practitioner Obstetrics & Gynecology | DX: Z34.91 Encounter for supervision of normal pregnancy, unspecified, first trimester (principal) ==

== ENCOUNTER → 2023-08-21 13:50 | Outpatient (CLI) | payer OTHER, SELFPAY ==
--- NOTE | 2023-08-21 13:50 | US_ITS ---
PROCEDURE: US OB <= 14 WEEKS FETUS CLINICAL INDICATION: for dates COMPARISON: No exams were available for comparison FINDINGS: Transvaginal sonographic images of the pelvis were obtained. From her last menstrual period she is 9weeks 1day. An intrauterine gestational sac is present with a pole with a crown-rump length of 2.54cm This correlates to a gestational age of 9weeks 3days. heart tones are present with an FHR of 172bpm. Yolk sac is noted. The yolk sac measures 4.7mm. The right ovary is seen and appears normal. It measures 2.8 cm x 2.5 cm x 1.3 cm. There are multiple peripheral small follicles. The ovary appears polycystic. The left ovary is seen and appears normal. It measures 3.2 cm x 2.2 cm x 1.3 cm. There is no fluid in the cul-de-sac. IMPRESSION: 1. Viable fetus within the uterine cavity. 2. The size is consistent with her last menstrual period. 3. Due date will remain March 24, 2024. Dictated by: Max Whyte MD 08/21/2023 17:42 Max Whyte MD in OV 08/21/2023 17:42
== END ==
PROVIDERS: PCP Nurse Practitioner Family; Visit Provider Nurse Practitioner Obstetrics & Gynecology
DX: Z34.91 Encounter for supervision of normal pregnancy, unspecified, first trimester (principal); Z3A.09 9 weeks gestation of pregnancy
CPT/HCPCS: 76801

== ENCOUNTER 2023-10-06 06:26 | Day surgery (SDC) | payer OTHER, SELFPAY ==
[2023-10-06] VITALS (18 sets, daily range): BP systolic 95–141; BP diastolic 42–90; PULSE 91–145; RESP 12–22; TEMP 36.4–37; O2SAT 94–100; BMI 27.4
--- NOTE | 2023-10-06 06:31 | PC.NURSE ---
Dr August called at this time and gave verbal order to start piticion 999 for 250 mls and then 40ml and she is on way in. Also instructed that no one pulls on placenta, verified and repeated back
--- NOTE | 2023-10-06 06:42 | PC.NURSE ---
in room talking with patient at this time
--- NOTE | 2023-10-06 06:45 | HMH.EDGENADL ---
Discharge Plan Disposition Patient Disposition: Admitted Chief Complaint: Vaginal Bleeding Prescriptions Prescriptions: No Action Classic 28 mg iron- 800 mcg tablet 1 tab PO DAILY Referrals Follow up/Referrals: Provider,Referral, [Primary Care Provider] - See instructions Clinical Impressions Clinical Impression: Spontaneous Discharge ED Provider: Jsesy Luo General Adult HPI General Chief complaint: Vaginal Bleeding Stated complaint: vaginal bleed Time Seen by Provider: 10/06/23 06:30 Mode of Arrival: Wheelchair Source of Information: Patient Limitations: No Limitations Description of Symptoms (Recalled from ER Triage Doc. by RN): pt states she was 16 weeks and began spotting on friday. History of Present Illness HPI narrative: This patient is a 28-year-old female G4, P3 presenting to the emergency department for evaluation with concern for cramping and vaginal bleeding. She noted that she had spotting that started on Friday, but she woke up with severe cramping and bleeding this morning. She drove herself in. No other concerns noted at this time. History is limited given acuity of condition, as patient arrives with significant bleeding and had to be helped out of the vehicle. On medical record review, blood type is O+. It also would appear that her has been uncomplicated thus far. Related Data Home Medications Medication Instructions Recorded Confirmed vits no.126-ferrous fum 1 tab PO DAILY 08/11/23 09/08/23 28 mg iron-folic acid 800 mcg tablet (Classic ) Allergies Allergy/AdvReac Type Severity Reaction Status Date / Time No Known Allergies Allergy Verified 09/08/23 10:38 [facility] Disclaimer: The information contained in this section may have been updated after the patient was seen, as this information can be updated by other users. Medical History Rubella non-immune status, antepartum Surgical History No history of previous surgery Family History Other No significant family history Social History Smoking Status: Current every day smoker tobacco type: cigarettes packs per day: 1 alcohol intake: never substance use type: denies use current occupational status: employed Travel in the last 8 weeks: None ROS Obtained: Yes All systems reviewed & no additional complaints except as documented Physical Exam General General appearance: alert and in distress Head Head exam: atraumatic and normocephalic Eye Eye exam: Present normal appearance, PERRL and EOMI ENT ENT exam: Present normal exam, normal oropharynx, mucous membranes moist and normal external ear exam Neck Neck exam: Present normal inspection, full ROM and trachea midline; Absent tenderness Chest Chest inspection: Present normal inspection and symmetric chest wall rise; Absent tenderness Respiratory Respiratory exam: Present normal lung sounds bilaterally; Absent respiratory distress, wheezes, stridor or accessory muscle use Cardiovascular Cardiovascular exam: Present normal rhythm and tachycardia Abdominal Exam Abdominal exam: Present soft; Absent distention, tenderness or guarding Expanded Exam OB exam: Present other (Fetus has been expelled from the uterus and is hanging by umbilical cord upon arrival. Significant bleeding is ongoing at this time.) External exam: Present bleeding (Significant bleeding with passage of large clots.) Extremities Exam Extremities exam: Present normal inspection, full ROM and normal capillary refill; Absent tenderness or edema Back Exam Back exam: Present normal inspection and full ROM; Absent tenderness Neurological Exam Neurological exam: Present alert, oriented X3, CN II-XII intact
--- NOTE | 2023-10-06 06:46 | PC.NURSE ---
in room with patient at this time.
[2023-10-06 06:47] LABS: Basophils # 0.1 K/mm3 (0-0.2); Basophils % 0.4 % (0.1-2.0); Chloride 107 mmol/L (98-107); Eosinophils # 0.3 K/mm3 (0.0-0.4); Eosinophils % 2.8 % (0.1-12.0); Hematocrit 36.7 % (37.0-47.0); Hemoglobin 12.6 g/dL (12.2-16.2); Lymphocytes # 2.2 K/mm3 (0.7-4.5); Lymphocytes % 19.5 % (10-50); Mean Corpuscular HGB Conc 34.4 g/dL (31.8-35.4); Mean Corpuscular Hemoglobin 29.6 pg (27.0-31.2); Mean Platelet Volume 7.9 fl (7.4-10.4); Monocytes # 0.6 K/mm3 (0.1-1.0); Neutrophils # 8.3 K/mm3 (1.8-7.8); Neutrophils % 72.2 % (37.0-80.0); Platelet Count 363 K/mm3 (142-424); Red Blood Count 4.26 M/mm3 (4.20-5.40); Red Cell Distribution Width 14.1 % (11.5-17.5); Sodium 138 mmol/L (136-145); White Blood Count 11.4 K/mm3 (4.8-10.8)
[2023-10-06 06:48] LABS: Potassium 3.3 mmoL/L (3.5-5.1)
[2023-10-06 06:50] LABS: Alanine Aminotransferase 25 U/L (12-78); Alkaline Phosphatase 91 U/L (38-126); Anion Gap 10.3 mEq/L (5-15); Aspartate Amino Transferase 27 U/L (14-36); Bilirubin,Total 0.6 mg/dl (0.2-1.3); Blood Urea Nitrogen 8 mg/dl (7-17); Calcium 8.8 mg/dl (8.4-10.2); Carbon Dioxide 24 mmol/L (22.0-30.0); Creatinine Clearance Estimated 160 mL/min (50-200); Estimated Glomerular Filt Rate 119 ml/min (>60); GFR (African American) 144 ML/MIN (>60); Glucose 114 mg/dl (74-100)
[2023-10-06 06:51] LABS: Albumin Level 4.2 g/dl (3.5-5.0); Albumin/Globulin Ratio 1.4 (1.1-1.8); Globulin 2.9 g/dL (1.3-3.2); Total Protein,Serum 7.1 g/dl (6.3-8.2)
--- NOTE | 2023-10-06 07:45 | PC.NURSE ---
Surgery team is here to collect pt & take her to surgery. Registration notified.
--- NOTE | 2023-10-06 07:48 | PC.NURSE ---
SURGERY STAFF AND DR EL AT BEDSIDE TO UPDATE PT AND TO TAKE TO SURGERY
--- NOTE | 2023-10-06 08:00 | SUR.PREOP ---
gave 200mg Doxycycline @0800- order not in counldn't scan
--- NOTE | 2023-10-06 08:05 | EXP.ANES.CKL ---
[facility] Disclaimer: The information contained in this section may have been updated after the patient was seen, as this information can be updated by other users. Medical History Rubella non-immune status, antepartum Surgical History No history of previous surgery Family History Other No significant family history Social History Smoking Status: Current every day smoker tobacco type: cigarettes packs per day: 1 alcohol intake: never substance use type: denies use current occupational status: employed Travel in the last 8 weeks: None [facility] Anesthesia Checklist Patient Identification Patient Identification: Arm Band and Verbal (Name & ) Structural Data Admitted From: Emergency Dept Planned Operative Procedure/s: D & E Consent for Planned Operative Procedure(s) Verified: Yes NPO Status Verified Time NPO: 00:00 Chart Verification Results Verified: CBC and BMP Additional verifications Anesthesia Reactions: No Airway Assessment Mallampati Score:: Class II C-Spine Mobility Assessed: Yes TMJ Mobility Assessed: Yes Dentition: Good Dentition Neurological Assessment Level of Consciousness: Awake Hx Seizures: No Numbness or tingling in extremities: No Anesthesia Plan Anesthesia Risk discussed: Yes Anesthesia Plan: Verified ASA Class: II (II E) Anesthesia Type: General
--- NOTE | 2023-10-06 08:12 | EXP.HP ---
History of Present Illness *Admission Date: 10/06/23 *Reason for visit:: Second trimester spontaneous *History of present illness: Ms Ml Valle is a 28 yo at 15w5d who presented to [facility] ED with complaints of bleeding and cramping. She reports she spotted on 09/30 and 10/01. Bleeding stopped. She admits she has been working a lot. She worked yesterday during the day. Last night light bleeding returned. At 0300 she woke up from sleep with severe cramping and bleeding. She drove herself to the ED and upon arrival baby had been delivered and was hanging from umbilical cord. She had heavy bleeding with passage of clots per the ED note. History of x 3. Denies significant past medical history. Admits she has been under a lot of stress recently. [facility] Disclaimer: The information contained in this section may have been updated after the patient was seen, as this information can be updated by other users. Medical History (Updated 10/06/23 @ 08:20 by Bee Shook DO) with 15 completed weeks gestation Retained placenta Rubella non-immune status, antepartum Spontaneous in second trimester Surgical History No history of previous surgery Family History Other No significant family history Social History Smoking Status: Current every day smoker tobacco type: cigarettes packs per day: 1 alcohol intake: never substance use type: denies use current occupational status: employed Travel in the last 8 weeks: None Review of Systems Review of Systems Review of systems:: pertinent systems reviewed and negative unless documented below *Genitourinary Genitourinary: Reports abnormal vaginal bleeding and Reports pelvic pain Meds Home Medications and Allergies Home Medications Medication Instructions Recorded Confirmed Type vits no.126-ferrous fum 1 tab PO DAILY 08/11/23 09/08/23 History 28 mg iron-folic acid 800 mcg tablet (Classic ) New Prescriptions to Start Prescriptions: Allergies Allergy/AdvReac Type Severity Reaction Status Date / Time No Known Allergies Allergy Verified 09/08/23 10:38 Exam Data for Last 24 hours Vital signs and Labs for Last 24 Hours: Temp Pulse Resp BP Pulse Ox O2 Del Method 98.6 F 112 H 16 104/70 L 99 Room Air 10/06/23 07:58 10/06/23 07:58 10/06/23 07:58 10/06/23 07:58 10/06/23 06:46 10/06/23 07:58 Laboratory Results - last 24 hr 10/06/23 06:34: WBC 11.4 H, RBC 4.26, Hgb 12.6, Hct 36.7 L, MCV 86.0, MCH 29.6, MCHC 34.4, RDW 14.1, Plt Count 363, MPV 7.9, Neut % (Auto) 72.2, Lymph % (Auto) 19.5, [place] % (Auto) 5.0, Eos % (Auto) 2.8, Baso % (Auto) 0.4, Neut # (Auto) 8.3 H, Lymph # (Auto) 2.2, [place] # (Auto) 0.6, Eos # (Auto) 0.3, Baso # (Auto) 0.1, Sodium 138, Potassium 3.3 L, Chloride 107, Carbon Dioxide 24, Anion Gap 10.3, BUN 8, Creatinine 0.60, Estimated Creat Clear 160, Estimated GFR 119, Est GFR ( Amer) 144, Glucose 114 H, Calcium 8.8, Total Bilirubin 0.6, AST 27, ALT 25, Alkaline Phosphatase 91, Total Protein 7.1, Albumin 4.2, Globulin 2.9, Albumin/Globulin Ratio 1.4 10/06/23 06:38: Blood Type O Positive, Antibody Screen Negative I & O for Last 24 hours: Intake & Output 10/03/23 10/04/23 10/05/23 10/06/23 23:59 23:59 23:59 23:59 Weight 160 lb Constitutional Constitutional: mild distress *Routine HEENT Exam Head: Present normocephalic and atraumatic Eye: Absent conjunctivae pink ENT: Present mucous membranes moist *Routine Neck Exam Neck: Present full ROM *Routine Respiratory Exam Respiratory: Present CTA bilaterally and normal respiratory effort *Routine Cardiovascular Exam Cardiovascular: Present RRR *Routine Abdominal Exam Abdominal: Present soft; Absent tenderness, distended or guarding *Routine Rectal
--- NOTE | 2023-10-06 09:01 | P.PNANES_ITS ---
[facility] Anesthesia Record Part I Anesthesia Record I Intake, IV Amount: 800 Hydration: Adequate Estimated blood loss (mL): 100 Urine output (mL): 0 Blood Pressure: 114/70 SaO2: 94 Pulse Rate: 103 Airway Patency: Patent Respiratory Rate: 12 Temperature: 98.2 F Patient is:: Drowsy and Oral/Nasal airway Stable to PACU at:: 08:59
--- NOTE | 2023-10-06 09:07 | EXP.OP.NOTE ---
Date of procedure: 10/06/23 Pre-op Diagnosis:: 1. Second trimester spontaneous 2. Retained placenta 3. hemorrhage 4. Rh positive Post-op Diagnosis:: 1. Second trimester spontaneous 2. Retained placenta 3. hemorrhage 4. Rh positive Procedure performed:: 1. Suction Dilation and curettage Surgeon:: Bee Shook DO Child Welfare Counselor(s):: N/a MUSIC SUPERVISOR:: Jayant Alfredo Anesthesia: GETA Estimated blood loss (mL): 100 Clinical Note:: Ms Ml Valle is a 28 yo at 15w5d who presented to [facility] with complaints of bleeding and cramping. She reports she spotted on 09/30 and 10/01. Bleeding stopped. She admits she has been working a lot. She worked yesterday during the day. Last night light bleeding returned. At 0300 she woke up from sleep with severe cramping and bleeding. She drove herself to the ED and upon arrival baby had delivered and was hanging from umbilical cord. She had heavy bleeding with passage of clots per the ED note. History of x 3. Denies significant past medical history. Admits she has been under a lot of stress recently. Operative findings:: 1. Uterus midposition and approximately 12 week size 2. Membranes protruding through external cervical os 3. Active bleeding from cervix/uterus during exam Operative note:: Risks, benefits and alternatives were discussed with the patient. Risks include but are not limited to bleeding, infection, uterine perforation and VTE. Patient voiced understanding and agreed to proceed. She received Doxycycline 200 mg PO in preop. She was wheeled back to the operating room and placed under general anesthesia without difficulty. She was placed in dorsal lithotomy position and prepped and draped in the normal sterile fashion. Straight catheter was used to drain the bladder. A bimanual exam was performed. A weighted Auvard was placed in the vaginal vault. Membranes were noted to be protruding from the external os. Ringed forcep was used to grasp the membranes gently. Large portion of placenta with membranes was removed with gentral traction with Ringed forcep. Specimen will be sent to pathology for review. Ringed tenaculum was placed on anterior lip of the cervix. Uterus sounded to 10 Sequential Jorge dilators were used to dilate the cervical os. An 9 mm curved english suction curettage was advanced into the uterine cavity without difficulty and was used to suction contents of the uterus. Following removal of the products of conception, a medium sized sharp curette was advanced into the uterine cavity and was used to scrape the uterine saleh until a gritty texture was noted. At this time, the suction curette was advanced one more time to suction any remaining products of conception and blood. Instruments were removed from the vagina. Bleeding had Patient was awaken from anesthesia without difficulty. Products of conception will be sent to pathology as well as chromosomal analysis. She was transported to recovery room in stable condition. She will received Venofer 200 mg IV x 1 dose in recovery. Patient will be discharged home when awake and ambulating. She was also given instructions to follow-up in the office in 2 weeks or sooner if needed. Condition: stable Disposition: same day Specimens:: 1. Products of conception Complications:: None
--- NOTE | 2023-10-06 10:08 | EXP.ANES.I ---
[facility] Anesthesia Record Part I Anesthesia Record I Intake, IV Amount: 200 Hydration: Adequate Estimated blood loss (mL): 50 Urine output (mL): 0 Blood Pressure: 95/42 SaO2: 95 Pulse Rate: 106 Airway Patency: Patent Respiratory Rate: 22 Temperature: 97.5 F Patient is:: Drowsy and Oral/Nasal airway Stable to PACU at:: 10:07
--- NOTE | 2023-10-07 08:56 | EXP.ANES.II ---
[facility] Anesthesia Record Part II Anesthesia Record Part II Discharge Time: 09:29 Destination: [facility] PACU nurse assessment reviewed?: Yes Patient Condition:: Good Anesthesia Complications:: None Swallowing reflex intact?: Yes Airway Patency: Patent Cyanosis?: No Blood Pressure: 109/68 SaO2: 100 Respiratory Rate: 14 Pulse Rate: 91 Temperature: 97.5 F Mental Status: Alert & Oriented Pain level:: 0 Nausea and/or vomitting:: None Intake, IV Amount: 500 Hydration: Adequate
[2023-10-07 08:58] VITALS: BP 109/68; PULSE 91; RESP 14; TEMP 36.4; O2SAT 100
== END 2023-10-06 12:50 | disposition home or self-care (01) ==
LOC: ER 07:25 → SDC 07:47
PROVIDERS: Emergency Provider Emergency Medicine; Visit Provider Obstetrics & Gynecology
PROC: (CPT 59812; principal; 2023-10-06 07:55)
DX: O03.1 Delayed or excessive hemorrhage following incomplete spontaneous abortion (principal)
CPT/HCPCS: 59812; 80053; 85025; 86850; J1756; J2405

== ENCOUNTER 2024-06-09 17:02 | Outpatient (CLI) | payer OTHER, SELFPAY ==
[2024-06-09 19:17] LABS: HCG,Quantitative 17889 mIU/ml (0-5.42)
[2024-06-11 09:10] LABS: Progesterone 10.4 ng/mL (.)
== END 2024-06-09 23:59 | disposition home or self-care (01) ==
LOC: LAB 17:03
PROVIDERS: PCP Nurse Practitioner Family; Visit Provider Obstetrics & Gynecology
DX: N92.6 Irregular menstruation, unspecified (principal)
CPT/HCPCS: 84144; 84702

== ENCOUNTER 2024-06-18 18:07 | Emergency (ER) | payer OTHER, SELFPAY ==
[2024-06-18 18:23] VITALS: BP 122/64; PULSE 88; RESP 18; TEMP 36.8; O2SAT 100; BMI 27.4
[2024-06-18 18:27] VITALS: BMI 27.4
[2024-06-18 18:30] VITALS: BP 119/67; PULSE 67; O2SAT 99
[2024-06-18 18:49] LABS: Albumin Level 4.4 g/dl (3.5-5.0); Chloride 105 mmol/L (98-107)
[2024-06-18 18:50] LABS: Potassium 3.5 mmoL/L (3.5-5.1); Sodium 138 mmol/L (136-145)
[2024-06-18 18:52] LABS: Blood Urea Nitrogen 10 mg/dl (7-17); Creatinine Clearance Estimated 163 mL/min (50-200); Estimated Glomerular Filt Rate 118 ml/min (>60); GFR (African American) 143 ML/MIN (>60)
[2024-06-18 18:53] LABS: Alanine Aminotransferase 28 U/L (12-78); Albumin/Globulin Ratio 1.6 (1.1-1.8); Alkaline Phosphatase 83 U/L (38-126); Anion Gap 10.5 mEq/L (5-15); Aspartate Amino Transferase 33 U/L (14-36); Bilirubin,Total 0.6 mg/dl (0.2-1.3); Calcium 9.2 mg/dl (8.4-10.2); Carbon Dioxide 26 mmol/L (22.0-30.0); Globulin 2.8 g/dL (1.3-3.2); Glucose 93 mg/dl (74-100); Total Protein,Serum 7.2 g/dl (6.3-8.2)
[2024-06-18 18:54] LABS: Basophils # 0.1 K/mm3 (0-0.2); Basophils % 0.7 % (0.1-2.0); Eosinophils # 0.3 K/mm3 (0.0-0.4); Eosinophils % 3.1 % (0.1-12.0); Hematocrit 38.6 % (37.0-47.0); Hemoglobin 12.3 g/dL (12.2-16.2); Lymphocytes # 2.2 K/mm3 (0.7-4.5); Lymphocytes % 20.9 % (10-50); Mean Corpuscular Hemoglobin 28.1 pg (27.0-31.2); Mean Corpuscular Volume 87.8 fl (81-99); Mean Platelet Volume 8.5 fl (7.4-10.4); Monocytes # 0.6 K/mm3 (0.1-1.0); Neutrophils # 7.2 K/mm3 (1.8-7.8); Neutrophils % 69.3 % (37.0-80.0); Platelet Count 304 K/mm3 (142-424); Red Blood Count 4.39 M/mm3 (4.20-5.40); White Blood Count 10.3 K/mm3 (4.8-10.8)
[2024-06-18 18:56] LABS: HCG Qualitative, Serum Positive (Negative)
--- NOTE | 2024-06-18 19:01 | US_ITS ---
PROCEDURE INFORMATION: Exam: US , Transvaginal Exam date and time: 06/18/2024 7:38 PM Age: 29 years old Clinical indication: Lmp or gestational age (in weeks): 7 weeks 3 days; Other: Vaginal bleeding; LABS AND CLINICAL REPORTS: Last menstrual period start date: 04/25/2024 Gestational age (Established): 7 w 5 d Estimated due date (Established): 01/30/2025 TECHNIQUE: Imaging protocol: Real-time transvaginal obstetrical ultrasound of the maternal pelvis with image documentation. Transvaginal imaging was used for better evaluation of the fetus, adnexa, and/or cervix. COMPARISON: US OB <= 14 WEEKS FETUS 08/21/2023 1:56 PM FINDINGS: Gestation: Yolk sac measures 4.9 mm. heart rate: 152 bpm Placenta: Small subchorionic hemorrhage noted measuring 9 x 7 x 13 mm. BIOMETRY: Gestational age (AUA): 7 w 3 d Estimated due date (AUA): 02/01/2025 [place] rump length (CRL): 12.06 mm. EGA (CRL) is 7 w 3 d MATERNAL: Right ovary/adnexa: Right ovary measures 2.4 cm x 1.37 cm x 1.67 cm. Right ovarian volume is 2.88 mL. Left ovary/adnexa: Left ovary measures 2.85 cm x 1.74 cm x 1.76 cm. Left ovarian volume is 4.57 mL. IMPRESSION: 1. Single live IUP with ultrasound age 7 weeks 3 days with corresponding LUCIEN 02/01/2025. Size and dates are concordant. 2. Small subchorionic hemorrhage.
--- NOTE | 2024-06-18 19:02 | PC.NURSE ---
I called radiology to page the US tech for a transvaginal US
--- NOTE | 2024-06-18 19:40 | PC.NURSE ---
Patient to US
[2024-06-18 20:06] LABS: HCG,Quantitative 62096 mIU/ml (0-5.42)
--- NOTE | 2024-06-18 20:08 | PC.NURSE ---
patient returned from US
--- NOTE | 2024-06-18 20:12 | HMH.EDGENADL ---
Discharge Plan Disposition Patient Disposition: Home, Self-Care Prescriptions Prescriptions: No Action Classic 28 mg iron- 800 mcg tablet 1 tab PO DAILY ondansetron 4 mg tablet,disintegrating 4 mg PO Q8H PRN (Reason: nausea and vomiting) Qty: 30 0RF citalopram 20 mg tablet 20 mg PO DAILY Qty: 30 11RF norelgestromin-ethin.estradiol [Xulane] 150-35 mcg/24 hr patch weekly 1 patch transdermal Q7D Qty: 3 2RF Rx Instructions: apply once weekly for 3 weeks of a 4-week cycle progesterone micronized [Prometrium] 200 mg capsule 200 mg vaginal HS Qty: 30 0RF ibuprofen 800 mg tablet 800 mg PO Q8H PRN (Reason: pain) Qty: 20 0RF hydrocodone-acetaminophen 5-325 mg tablet 1 tab PO Q6H PRN (Reason: pain) Qty: 10 0RF Referrals Follow up/Referrals: Cristy Pham [Primary Care Provider] - See instructions Activity Restrictions/Add. Instructions Additional Instructions/Restrictions: Call your family doctor to establish care for this visit to the emergency department and schedule follow-up within 48 hours to ensure improvement. If you have any worsening of your condition or any other concerning signs or symptoms, return to the emergency department or your primary care doctor for further evaluation. Maintain your follow-up with OB Clinical Impressions Clinical Impression: Vaginal bleeding affecting early Print Language Print Language: Tajik Discharge ED Provider: Oliver Sadler General Adult HPI General Chief complaint: OB/Uterine Contractions Stated complaint: 6-8 weeks with bleeding Time Seen by Provider: 06/18/24 19:10 Mode of Arrival: Ambulatory Source of Information: Patient and Spouse Limitations: No Limitations Description of Symptoms (Recalled from ER Triage Doc. by RN): pt states she started having vaginal bleeding approximately 1.5hr ago post sexual intercourse. pt states she is approximately 7-wks . pt has her first OB appointment tomorrow. pt has 3 living children and has had 5 pregnancies. pt had a spontaneous at 16wks in September of 2023. pt states she started intravaginal progesterone this week. pt also c/o nausea. pt denies pain or any other symptoms. History of Present Illness HPI narrative: Please note that above description of symptoms, in this electronic medical record under categorization of recalled from ER triage doctor by RN are reflective of an initial nursing assessment, however, is not reflective of my full history and physical exam that was personally taken and clarified. Consequentially, this preceding description of symptoms, which may include the patient's categorized chief complaint in the EMR, do not reflect my personal clinical impression, and the ultimate description of history of present illness and patient stated complaints should be deferred to this section of the note. Unless stated otherwise or congruent with this section of the note, additional signs, symptoms, or incongruence should be interpreted as inaccurate with my clinical impression. Related Data Home Medications ?Medication ?Instructions ?Recorded ?Confirmed vits no.126-ferrous fum 1 tab PO DAILY 08/11/23 09/08/23 28 mg iron-folic acid 800 mcg tablet (Classic ) Previous Rx's ?Medication ?Instructions ?Recorded hydrocodone 5 mg-acetaminophen 325 1 tab PO Q6H PRN pain #10 tabs 10/06/23 mg tablet ibuprofen 800 mg tablet 800 mg PO Q8H PRN pain #20 tabs 10/06/23 ondansetron 4 mg disintegrating 4 mg PO Q8H PRN nausea and 10/06/23 tablet vomiting #30 tabs citalopram 20 mg tablet 20 mg PO DAILY #30 tabs 10/07/23 norelgestromin 150 mcg-e.estradiol 1 patch transdermal Q7D #3 ea 01/14/24 35 mcg/24 hr weekly transderm patch (Xulane) progesterone micronized 200 mg 200 mg vaginal HS #30 caps 06/13/24 capsule (Prometrium) Allergies Allergy/AdvReac Type Severity Reaction Status Date / Time No Known Allergies Al
[2024-06-18 20:42] VITALS: BP 101/63; PULSE 78; RESP 16; TEMP 36.8; O2SAT 100
== END 2024-06-18 20:43 | disposition home or self-care (01) ==
PROVIDERS: Emergency Provider Emergency Medicine; PCP Nurse Practitioner Family
DX: O20.9 Hemorrhage in early pregnancy, unspecified (principal); Z3A.01 Less than 8 weeks gestation of pregnancy
CPT/HCPCS: 36415; 76817; 80053; 84702; 84703; 85025; 86850; 99284

== ENCOUNTER 2024-06-21 15:00 | Outpatient (CLI) | payer OTHER, SELFPAY | END 2024-06-21 23:59 | disposition home or self-care (01) | LOC: LAB.DROPOF 06-22 10:00 | PROVIDERS: PCP Obstetrics & Gynecology; Visit Provider Obstetrics & Gynecology | DX: Z34.90 Encounter for supervision of normal pregnancy, unspecified, unspecified trimester (principal) | CPT/HCPCS: 87086 ==

== ENCOUNTER 2024-07-01 16:21 | Outpatient (CLI) | payer OTHER, SELFPAY ==
[2024-07-01 20:07] LABS: Basophils # 0.1 K/mm3 (0-0.2); Basophils % 0.5 % (0.1-2.0); Eosinophils # 0.3 K/mm3 (0.0-0.4); Eosinophils % 2.6 % (0.1-12.0); Hemoglobin 12.4 g/dL (12.2-16.2); Lymphocytes # 2.7 K/mm3 (0.7-4.5); Lymphocytes % 22.6 % (10-50); Mean Corpuscular HGB Conc 32.7 g/dL (31.8-35.4); Mean Corpuscular Hemoglobin 28.8 pg (27.0-31.2); Mean Corpuscular Volume 88.1 fl (81-99); Mean Platelet Volume 8.1 fl (7.4-10.4); Monocytes # 0.7 K/mm3 (0.1-1.0); Monocytes % 5.8 % (1.7-9.3); Neutrophils # 8.1 K/mm3 (1.8-7.8); Neutrophils % 68.5 % (37.0-80.0); Platelet Count 332 K/mm3 (142-424); Red Blood Count 4.32 M/mm3 (4.20-5.40); Red Cell Distribution Width 15.8 % (11.5-17.5); White Blood Count 11.8 K/mm3 (4.8-10.8)
[2024-07-02 10:45] LABS: HIV (1&2) Antibody Rapid NONREACTIVE (NONREACTIVE)
[2024-07-03 07:12] LABS: HCV Ab Non Reactive (Non Reactive); Hepatitis B Surface Antigen Negative (Negative)
[2024-07-03 08:17] LABS: Rubella Antibodies, IgG 1.51 index (Immune >0.99)
[2024-07-03 13:17] LABS: Rapid Plasma Reagin Ab Titer Non Reactive titer (NonRea<1:1)
== END 2024-07-01 23:59 | disposition home or self-care (01) ==
LOC: LAB 16:21
PROVIDERS: PCP Nurse Practitioner Family; Visit Provider Obstetrics & Gynecology
DX: Z34.90 Encounter for supervision of normal pregnancy, unspecified, unspecified trimester (principal)
CPT/HCPCS: 86703; 36415; 85025; 86593; 86762; 86803; 86850; 87340

== ENCOUNTER 2024-09-15 12:46 | Outpatient (CLI) | payer OTHER, SELFPAY ==
--- NOTE | 2024-09-15 12:47 | US_ITS ---
PROCEDURE: US OB >= 14 WEEKS FETUS CLINICAL INDICATION: 20 week anatomy COMPARISON: US US OB TRANSVAGINAL from 06/18/2024 FINDINGS: Transabdominal sonographic images of the pelvis were obtained. From her established due date she is 20 WEEKS 3 DAYS. Single viable intrauterine gestation. Breech position. Placenta: Anteriorplacenta grade 1. There is an average amount of fluid. The cervix appears satisfactory. Closed and measuring 4.5 cm in length. Complete survey performed and was unremarkable on the submitted images as in PACS. No discrete anomalies identified on survey imaging by technologist. Active fetus. Three-vessel cord with satisfactory umbilical cord insertion. 4- chamber heart noted. Situs, aortic arch, LVOT, RVOT, three-vessel view appear normal. Survey of brain & ventricles Unremarkable. Cerebellum, thalamus, choroid plexus, cisterna magna appear normal. There is a small choroid plexus cyst measuring 5.7 mm Face and neck survey unremarkable. Profile, nasion, lips and nose appeared normal. Diaphragm and chest views unremarkable. Abdomen: Both kidneys noted and unremarkable. Stomach and bladder noted and satisfactory. Spine: Survey of the spine satisfactory with no anomalies identified nor imaged. Cervical, thoracic, lower spine appear normal. The survey of the spine was incomplete due to position but appeared normal. Both arms and legs noted. Amniotic Fluid: Adequate. MVP 3.68 cm Measurements: Average ultrasound age 20weeks 4days. Estimated due date by ultrasound age 0401/29/2025. Estimated weight 374g BPD = 20weeks 1day HC = 20weeks 2days AC = 21weeks 2days FL = 20weeks 3days Growth Percentile= 62 Heart Rate = 146bpm Cerebellum = 19weeks 6days Humerus = 20weeks 6days HC/AC is 1.11 FL/BPD is 0.71 FL/AC is 0.21 IMPRESSION: 1. Viable fetus in the breech presentation with an anterior placenta grade 1. 2. The fluid is within normal limits with an MVP 3.68 cm. 3. Anatomical scan appears normal. 4. There is a 5 mm choroid plexus cyst. The spinal examination was incomplete due to position. Suggest repeat scan at 28 weeks. 5. biometry is consistent with a dates. Dictated by: Max Whyte MD 09/15/2024 14:15 Max Whyte MD in [place] 09/15/2024 14:15
== END 2024-09-15 23:59 | disposition home or self-care (01) ==
LOC: RAD 12:47
PROVIDERS: PCP Nurse Practitioner Family; Visit Provider Obstetrics & Gynecology
DX: Z34.92 Encounter for supervision of normal pregnancy, unspecified, second trimester (principal); Z3A.20 20 weeks gestation of pregnancy
CPT/HCPCS: 76805

== ENCOUNTER 2024-11-11 14:02 | Outpatient (CLI) | payer OTHER, SELFPAY ==
--- NOTE | 2024-11-11 14:03 | US_ITS ---
PROCEDURE: US OB FOLLOW UP CLINICAL INDICATION: 5 mm choroid plexus cyst and inadequate spine view COMPARISON: US US OB TRANSVAGINAL from 06/18/2024 US US OB >= 14 WEEKS FETUS from 09/15/2024 FINDINGS: Transabdominal sonographic images of the pelvis were obtained. The following parameters are obtained: From her established due date she is 28weeks 5days Viable fetus in the cephalic presentation with an anterior placenta grade 1. The cervix measures 3.43 cm heart rate: 149bpm bpm. Amniotic fluid index: 15.55cm, MVP 5.36 cm. No obvious anomalies evident. profile seen, nasion, kidneys, three-vessel cord, four chamber heart appear normal. spine: Cervical, thoracic and lower spine appear normal. The previously described choroid plexus cyst is not seen today. IMPRESSION: 1. Viable fetus in the cephalic presentation with anterior placenta grade 1. 2. The fluid is within normal limits with an amniotic fluid index 15.55 cm, MVP 5.36 cm. 3. Limited anatomical scan appears normal. 4. spine appears normal. 5. The previously described choroid plexus cysts is not visualized today. Dictated by: Max Whyte MD 11/11/2024 15:54 Max Whyte MD in OV 11/11/2024 15:54
== END 2024-11-11 23:59 | disposition home or self-care (01) ==
LOC: RAD 14:03
PROVIDERS: PCP Nurse Practitioner Family; Visit Provider Obstetrics & Gynecology
DX: Z36.2 Encounter for other antenatal screening follow-up (principal); O09.293 Supervision of pregnancy with other poor reproductive or obstetric history, third trimester; O35.03X0 Maternal care for (suspected) central nervous system malformation or damage in fetus, choroid plexus cysts, not applicable or unspecified; Z3A.28 28 weeks gestation of pregnancy
CPT/HCPCS: 76816

== ENCOUNTER 2024-11-11 15:09 | Outpatient (CLI) | payer OTHER, SELFPAY ==
[2024-11-11 16:33] LABS: Basophils # 0.1 K/mm3 (0-0.2); Basophils % 0.4 % (0.1-2.0); Eosinophils # 0.5 K/mm3 (0.0-0.4); Eosinophils % 3.8 % (0.1-12.0); Hematocrit 33.2 % (37.0-47.0); Hemoglobin 11.2 g/dL (12.2-16.2); Mean Corpuscular HGB Conc 33.7 g/dL (31.8-35.4); Mean Corpuscular Hemoglobin 29.3 pg (27.0-31.2); Mean Corpuscular Volume 86.9 fl (81-99); Mean Platelet Volume 9.8 fl (7.4-10.4); Monocytes % 7.5 % (1.7-9.3); Neutrophils # 9.7 K/mm3 (1.8-7.8); Neutrophils % 72.4 % (37.0-80.0); Platelet Count 347 K/mm3 (142-424); Red Blood Count 3.82 M/mm3 (4.20-5.40); Red Cell Distribution Width 13.9 % (11.5-17.5); White Blood Count 13.4 K/mm3 (4.8-10.8)
[2024-11-11 17:11] LABS: Glucose 1 Hour 98 mg/dL (74-100)
[2024-11-12 17:54] LABS: RPR W/RFX Titers Nonreactive (Nonreactive)
== END 2024-11-11 23:59 | disposition home or self-care (01) ==
LOC: LAB 15:10
PROVIDERS: PCP Nurse Practitioner Family; Visit Provider Obstetrics & Gynecology
DX: Z34.90 Encounter for supervision of normal pregnancy, unspecified, unspecified trimester (principal)
CPT/HCPCS: 36415; 82947; 85025; 86592

== ENCOUNTER 2024-12-21 19:07 | Outpatient (CLI) | payer OTHER, SELFPAY | END 2024-12-21 23:59 | disposition home or self-care (01) | LOC: LAB.DROPOF 19:08 | PROVIDERS: PCP Obstetrics & Gynecology; Visit Provider Obstetrics & Gynecology | DX: Z34.83 Encounter for supervision of other normal pregnancy, third trimester (principal); Z3A.34 34 weeks gestation of pregnancy | CPT/HCPCS: 86403 ==

== ENCOUNTER 2025-01-26 05:41 | Inpatient (IN) | payer OTHER, SELFPAY ==
[2025-01-26 06:02] VITALS: BP 129/63; PULSE 89; RESP 18; O2SAT 100; BMI 30.5
[2025-01-26] MEDS: LACTATED RINGERS 1000ML 1,000 ML 250 ML IV (06:29)
[2025-01-26] MEDS: DEXTROSE 5%-LACTATED RINGERS 1,000 ML 125 ML IV (06:29)
[2025-01-26] MEDS: OXYTOCIN/RINGERS LACTATE 30 UNITS/500 ML BAG IV (06:33)
[2025-01-26 06:44] LABS: Basophils # 0.1 K/mm3 (0-0.2); Basophils % 0.5 % (0.1-2.0); Eosinophils # 0.4 K/mm3 (0.0-0.4); Eosinophils % 3.1 % (0.1-12.0); Hematocrit 33.4 % (37.0-47.0); Hemoglobin 11.2 g/dL (12.2-16.2); Lymphocytes # 2.4 K/mm3 (0.7-4.5); Lymphocytes % 17.7 % (10-50); Mean Corpuscular HGB Conc 33.5 g/dL (31.8-35.4); Mean Corpuscular Hemoglobin 28.4 pg (27.0-31.2); Mean Corpuscular Volume 84.8 fl (81-99); Monocytes # 1.2 K/mm3 (0.1-1.0); Neutrophils # 9.5 K/mm3 (1.8-7.8); Neutrophils % 68.8 % (37.0-80.0); Platelet Count 360 K/mm3 (142-424); Red Blood Count 3.94 M/mm3 (4.20-5.40); Red Cell Distribution Width 14.4 % (11.5-17.5); White Blood Count 13.8 K/mm3 (4.8-10.8)
[2025-01-26 08:05] VITALS: BP 111/73; PULSE 76; RESP 18; TEMP 36.9; O2SAT 99
--- NOTE | 2025-01-26 08:24 | P.HP_ITS ---
OB - H&P: HPI Antepartum History of Present Illness Chief complaint: Elective induction of labor History of present illness: Mrs Ml Valle is a 29 yo at 39w3d who presents to [facility] L[facility] for elective induction of labor. She has had good care. complicated by depression. She has history of retained placenta and hemorrhage following 15 week miscarriage (09/2023). History of Present Criteria for establishing EDC:: LMP confirmed by 1st trimester US care: good care Ultrasounds: normal mid trimester US Obstetrical complications: none Medical complications: none Labs Blood type: O (+) positive Rubella: immune RPR/VDRL: nonreactive GBS status: negative HBsAG: negative PFSH [facility] Disclaimer: The information contained in this section may have been updated after the patient was seen, as this information can be updated by other users. Medical History (Updated 01/26/25 @ 08:36 by Bee Shook DO) Encounter for elective induction of labor Depression affecting Nausea History of miscarriage, currently Spontaneous in second trimester Surgical History History of D&C Family History Other No significant family history Social History Smoking Status: Former smoker tobacco type: cigarettes packs per day: 1 alcohol intake: never substance use type: denies use current occupational status: employed Travel in the last 8 weeks: None Other Medical History Have you received the Flu Vaccine for this season: Yes Have you received the Pneumonia Vaccine: No Review of Systems Review of Systems Review of systems:: pertinent systems reviewed and negative unless documented below Meds Home Medications and Allergies Home Medications ?Medication ?Instructions ?Recorded ?Confirmed ?Type vits no.126-ferrous fum 1 tab PO DAILY 06/21/24 01/20/25 History 28 mg iron-folic acid 800 mcg tablet (Classic ) citalopram 40 mg tablet 40 mg PO DAILY #30 tabs 10/14/24 01/20/25 Rx New Prescriptions to Start Prescriptions: Allergies Allergy/AdvReac Type Severity Reaction Status Date / Time No Known Allergies Allergy Verified 01/20/25 10:50 OB - H&P: Exam Physical Exam Vital signs: Temp Pulse Resp BP Pulse Ox O2 Del Method 98.5 F 76 18 111/73 99 Room Air 01/26/25 08:05 01/26/25 08:05 01/26/25 08:05 01/26/25 08:05 01/26/25 08:05 01/26/25 08:05 Constitutional no acute distress and cooperative Routine HEENT Exam Head: Present normocephalic and atraumatic Eye: Absent conjunctivae pink ENT: Present mucous membranes moist Routine Neck Exam Present full ROM Routine Respiratory Exam Present CTA bilaterally and normal respiratory effort Routine Cardiovascular Exam Present RRR Routine Abdominal Exam Present soft (Gravid); Absent tenderness Routine Exam External: Present normal urethra appearance; Absent erythema, tenderness, lesions or lacerations Routine Extremities Exam Present full ROM; Absent edema or calf tenderness Routine Neurological Exam Present alert, moving all extremities and normal speech Routine Psychiatric Exam Present normal affect and cooperative Detailed Labor and Delivery Exam Dilation (cm): 3 Effacement (%): 60 Cervix position: mid station: -2 Consistency: soft Membranes: artificially ruptured Amniotic fluid: clear Baseline heart rate: 135 monitor accelerations: Present monitor decelerations: None termite helper variability: Moderate (11-25) OB - Results Labs Labs: Short CBC 01/26/25 Range/Units 06:08 WBC 13.8 H (4.8-10.8) K/mm3 Hgb 11.2 L (12.2-16.2) g/dL Hct 33.4 L (37.0-47.0) % Plt Count 360 (142-424) K/mm3 OB - A/P Antepartum (1) Encounter for elective induction of labor: Status: Acute (2) Depression affecting : Status: Acute Additional Plan Planning to breastfeed?: Yes Additional Information:: Admit to [facility] L[facility] for elective induction of labor. Induction with Pitocin and amniotomy GBS negative Close monitoring Anticipate
[2025-01-26] MEDS: LACTATED RINGERS 1000ML 1,000 ML 999 ML IV (08:30)
--- NOTE | 2025-01-26 09:33 | P.PNANES_ITS ---
[facility] Disclaimer: The information contained in this section may have been updated after the patient was seen, as this information can be updated by other users. Medical History (Updated 01/26/25 @ 08:36 by Bee Shook DO) Encounter for elective induction of labor Depression affecting Nausea History of miscarriage, currently Spontaneous in second trimester Surgical History History of D&C Family History Other No significant family history Social History (Updated 01/26/25 @ 08:30 by Leigh Ann Whitney RN) Smoking Status: Former smoker tobacco type: cigarettes packs per day: 1 alcohol intake: never substance use type: denies use current occupational status: employed Travel in the last 8 weeks: None Have you lived/traveled outside [place] in past 30 days?: No Contact w/someone who lives/traveled outside US past 30 days?: No Exposure to someone with infectious disease in past 14 days?: No Do you have a fever (greater than 100.4 F or 38 C)?: No Have you tested positive for COVID-19: No Exposed to someone with COVID-19 in past 14 days?: No Do you have a sore throat?: No Do you have a cough?: No Do you have any weakness?: No Are you experiencing any nausea/vomitting?: No Do you have any diarrhea?: No Are you experiencing any unusual bleeding?: No Do you have any muscle aches/pain?: No Do you have any abdominal pain?: No Are you experiencing loss of taste or smell?: No [facility] Anesthesia Checklist Patient Identification Patient Identification: Arm Band and Verbal (Name & ) Structural Data Admitted From: Home Planned Operative Procedure/s: labor epidural Consent for Planned Operative Procedure(s) Verified: Yes Verified Documents: Surgical Consent and History and Physical NPO Status Verified Time NPO: 00:00 Additional verifications Anesthesia Reactions: No Airway Assessment Mallampati Score:: Class I Dentition: Good Dentition Neurological Assessment Level of Consciousness: Awake, Alert and Appropriate Anesthesia Plan Anesthesia Risk discussed: Yes Anesthesia Plan: Verified ASA Class: I Anesthesia Type: Epidural
[2025-01-26 13:07] LABS: RPR W/RFX Titers Nonreactive (Nonreactive)
[2025-01-26] MEDS: OXYTOCIN/RINGERS LACTATE 30 UNITS/500 ML BAG 999 UNITS IV (14:11)
[2025-01-26] MEDS: OXYTOCIN/RINGERS LACTATE 30 UNITS/500 ML BAG 40 UNITS IV (14:16)
--- NOTE | 2025-01-26 14:29 | P.PCN_ITS ---
Delivery Note Delivery Date:: 01/26/25 Delivery Time:: 14:08 Anesthesia Type: Epidural Was labor medically induced?: No Induction method: per pitocin protocol Gestational age (weeks): 39 delivered prior to 39 weeks?: No Infant Gender: Female at 1 minute: 7 at 5 minutes: 8 Delivery Procedure:: Mom complete with epidural. Pushed for approximately 4 minutes. Head delivered spontaneously over intact perineum in CANDE position. No nuchal cord. Anterior shoulder delivered with gentle downward pressure. Posterior shoulder and remainder of body delivered spontaneously. Baby placed on maternal abdomen, mouth and nares bulb suctioned, warmed/dried and stimulated. Delayed cord clampi ng was performed for 60 seconds. Cord was clamped and cut by father of baby. Cord blood was obtained. Placenta delivered spontaneously and intact. First degree perineal laceration repaired with 3-0 Vicryl. Hemostasis noted. Right periurethral abrasion was hemostatic. Mom and baby were skin to skin and doing well after delivery. Live female baby (baby's name is Lala Fernandes) APGARs 7 (1 min), 8 (5 min) EBL 50 mL Laceration:: vaginal Placental Delivery Description: Spontaneous
[2025-01-26] MEDS: IBUPROFEN 400 MG TABLET 800 MG PO (16:55)
[2025-01-26] MEDS: ACETAMINOPHEN 500MG TAB 1000 MG PO ×2 (16:56→22:39)
[2025-01-26 20:11] VITALS: BP 115/59; PULSE 84; RESP 16; TEMP 36.7; O2SAT 97
[2025-01-27] MEDS: IBUPROFEN 400 MG TABLET 800 MG PO ×2 (02:40→15:56)
[2025-01-27 05:22] VITALS: BP 105/59; PULSE 85; RESP 17; TEMP 36.6; O2SAT 99
[2025-01-27] MEDS: ACETAMINOPHEN 500MG TAB 1000 MG PO ×2 (05:24→11:45)
[2025-01-27 06:41] LABS: Basophils # 0.1 K/mm3 (0-0.2); Basophils % 0.5 % (0.1-2.0); Hematocrit 30.3 % (37.0-47.0); Lymphocytes # 2.9 K/mm3 (0.7-4.5); Monocytes # 1.4 K/mm3 (0.1-1.0)
[2025-01-27 07:09] LABS: Eosinophils # 0.5 K/mm3 (0.0-0.4); Eosinophils % 3.6 % (0.1-12.0); Lymphocytes % 19.3 % (10-50); Mean Corpuscular HGB Conc 32.3 g/dL (31.8-35.4); Mean Corpuscular Hemoglobin 28.7 pg (27.0-31.2); Mean Corpuscular Volume 88.6 fl (81-99); Mean Platelet Volume 10.2 fl (7.4-10.4); Monocytes % 9.3 % (1.7-9.3); Neutrophils # 9.8 K/mm3 (1.8-7.8); Neutrophils % 66.5 % (37.0-80.0); Platelet Count 293 K/mm3 (142-424); Red Blood Count 3.42 M/mm3 (4.20-5.40); Red Cell Distribution Width 14.6 % (11.5-17.5); White Blood Count 14.8 K/mm3 (4.8-10.8)
[2025-01-27 07:10] LABS: Hemoglobin 9.8 g/dL (12.2-16.2)
[2025-01-27 07:45] VITALS: BP 107/64; PULSE 77; RESP 20; TEMP 36.6; O2SAT 99
--- NOTE | 2025-01-27 13:02 | P.DS_ITS ---
General Admission date:: 01/26/25 Discharge date: 01/27/25 HPI HPI HPI: Mrs Ml Valle is a 29 yo at 39w3d who presents to [facility] L&D for elective induction of labor. She has had good care. complicated by depression. She has history of retained placenta and hemorrhage following 15 week miscarriage (09/2023). Hospital Course Hospital Course Hospital Course: Ml Valle is a day #1 from a normal spontaneous vaginal delivery at 39 weeks and 3 days gestation. has been complicated only by depression. She has done very well. She had a normal spontaneous vaginal delivery of a female weighing 7 pounds and 7 ounces. Delivery was on 01/26/2025 at 1408. She had a first-degree perineal laceration that was easily repaired. Blood type was O+, she does not require RhoGAM. GBS is negative. Rubella was immune. Apgars were 7 and 8. She is breast-feeding. She desires a bilateral salpingectomy for contraception. Infant's name is Lala Fernandes . She has done well and has remained afebrile throughout hospitalization. She is eating and drinking and ambulating. She will be discharged home to follow-up with Dr. Shook in 2 weeks time. She will continue with her vitamins and iron. She will take ibuprofen as well. She was given the usual instructions with respect to limiting her activity, driving and sexual activity. She was given instructions with respect to wound care. Her condition on discharge is stable and improved. Exam Data for Last 24 hours Vital signs and Labs for Last 24 Hours: Temp Pulse Resp BP Pulse Ox O2 Del Method 97.8 F 77 20 107/64 L 99 Room Air 01/27/25 07:45 01/27/25 07:45 01/27/25 07:45 01/27/25 07:45 01/27/25 07:45 01/27/25 07:45 Laboratory Results - last 24 hr 01/26/25 06:08: RPR w/Rflx to Titer Nonreactive 01/27/25 05:17: WBC 14.8 H, RBC 3.42 L, Hgb 9.8 L D, Hct 30.3 L, MCV 88.6, MCH 28.7, MCHC 32.3, RDW 14.6, Plt Count 293, MPV 10.2, Neut % (Auto) 66.5, Lymph % (Auto) 19.3, Antelope % (Auto) 9.3, Eos % (Auto) 3.6, Baso % (Auto) 0.5, Neut # (Auto) 9.8 H, Lymph # (Auto) 2.9, Antelope # (Auto) 1.4 H, Eos # (Auto) 0.5 H, Baso # (Auto) 0.1 I & O for Last 24 hours: Intake & Output 01/24/25 01/25/25 01/26/25 01/27/25 23:59 23:59 23:59 23:59 Weight 178 lb Constitutional Constitutional: no acute distress *Routine HEENT Exam Head: Present normocephalic Eye: Present EOMI and PERRL ENT: Present mucous membranes moist *Routine Neck Exam Neck: Present supple; Absent lymphadenopathy *Routine Respiratory Exam Respiratory: Present CTA bilaterally *Routine Cardiovascular Exam Cardiovascular: Present RRR *Routine Abdominal Exam Abdominal: Present soft and normoactive bowel sounds; Absent tenderness Comments: Fundus at the umbilicus. Lochia appropriate *Routine Extremities Exam Extremities: Absent cyanosis, clubbing or edema *Routine Skin Exam Skin: Present warm; Absent rash *Routine Neurological Exam Neurological: Present alert and oriented X3 Results Data Completed and Pending Labs on day of discharge: Labs from last 24 hours 01/27/25 01/26/25 05:17 06:08 WBC 14.8 H RBC 3.42 L Hgb 9.8 L D Hct 30.3 L MCV 88.6 MCH 28.7 MCHC 32.3 RDW 14.6 Plt Count 293 MPV 10.2 Neut % (Auto) 66.5 Lymph % (Auto) 19.3 Antelope % (Auto) 9.3 Eos % (Auto) 3.6 Baso % (Auto) 0.5 Neut # (Auto) 9.8 H Lymph # (Auto) 2.9 Antelope # (Auto) 1.4 H Eos # (Auto) 0.5 H Baso # (Auto) 0.1 RPR w/Rflx to Titer Nonreactive DS: Diagnosis Discharge Diagnosis (1) Encounter for elective induction of labor: Status: Acute Code(s): Z34.90 - Encounter for supervision of normal , unspecified, unspecified trimester (2) Depression affecting : Status: Acute Code(s): O99.340 - Other mental disorders complicating , unspecified trimester; F32.A - Depression, unspecified Meds Home Medications and Allergies Home Medications ?Medication ?Instructions ?Recorded ?Confirmed ?Type vits no.126-ferrous fum 1 tab PO DAILY 06/21/24 01/26/25 History 28 mg iron-folic acid 800 mcg tablet (Classic ) citalopram 40 mg tablet 40 mg PO DAILY #30 tabs 10/14/24 01/26/25 Rx acetaminophen 500 mg tablet 500 mg PO Q6H PRN fever or pain 01/27/25 Rx #30 tabs ferrous sulfate 325 mg (65 mg 325 mg PO DAILY #30 tabs 01/27/25 Rx iron) tablet,delayed release ibuprofen 800 mg tablet 800 mg PO Q8H PRN pain #60 tabs 01/27/25 Rx New Prescriptions to Start Prescriptions: acetaminophen Maria Isabel August ferrous sulfate Mata,Maria Isabel ibuprofen Maria Isabel August Allergies Allergy/AdvReac Type Severity Reaction Status Date / Time No Known Allergies Allergy Verified 01/20/25 10:50 Discharge Plan Disposition Patient Disposition: Home, Self-Care Discharge Order Discharge Orders: Discharge Order (Routine); Ordered 01/27/25 Ordered By: Maria Isabel August Follow up Plan Follow up with: Bee Shook DO [Staff Physician] - 02/09/25 9:15 am Prescriptions/Medication Reconciliation: New acetaminophen 500 mg tablet 500 mg PO Q6H PRN (Reason: fever or pain) Qty: 30 3RF ibuprofen 800 mg tablet 800 mg PO Q8H PRN (Reason: pain) Qty: 60 2RF ferrous sulfate 325 mg (65 mg iron) tablet,delayed release (DR/EC) 325 mg PO DAILY Qty: 30 3RF Continued Classic 28 mg iron- 800 mcg tablet 1 tab PO DAILY citalopram 40 mg tablet 40 mg PO DAILY Qty: 30 4RF Problem Reconciliation Problems Reviewed?: Yes Patient Discharge Instructions ACTIVITY: Continue current activity DIET: regular diet Additional Instructions: Congratulations on the delivery of your sweet baby female. It is my privilege to be a part of your OBGYN team Discharge: -Take 800 mg Ibuprofen every 8 hours as needed for pain. You can also take 500- 1000 mg of Tylenol in between doses, every 6-8 hours. -Colace can be taken 1-2 times per day as you need to soften your stool. Make sure to drink at least 8 cups of water per day. -Iron supplements can make you constipated. You can take iron tablets every other day if constipation is too bad. -Nothing in the vagina for 6 weeks - no intercourse, douching, tampons. No tub baths or swimming pools. -Do not lift greater than 20pounds for 2 weeks, this is the equivalent of 2 gall ons of milk. -Reasons to return to L&D or call On-Call doctor - fever (greater than 100.4) - heavy vaginal bleeding (soaking through 1 pad in less than 2 hours or passing clots that are egg sized) - vaginal discharge (malodorous and/or purulent) - severe headaches, leg tenderness/edema, or any other symptoms that warrant immediate medical attention. depression/blues - Normal to feel anxious/overwhelmed for first 2 weeks - Talk to your doctor if: anxiety lasts over 2 weeks, trouble bonding with baby, withdrawing from other family members, thoughts of harming yourself or others Blood pressure and preeclampsia instructions -Please call if greater than 2 values are higher than: 150 systolic (the top number) or 100 diastolic (the bottom number). -Please go to the emergency room or labor and delivery triage if any value is higher than: 160 systolic (the top number) or 110 diastolic (the bottom number). -Please call if unrelenting headache (does not go away with rest or Tylenol or ibuprofen), changes in vision (spots, floaters, flashes of light), chest pain, shortness of breath, or right upper quadrant (liver) abdominal pain. Maria Isabel August DO [facility] [phone] *Nothing in the Vagina for 6 weeks* *No strenuous activity* *No heavy lifting* *No tub baths until okay's by MD* Patient Instructions: Depression, Hemorrhage, DI for Labor and Delivery, Vaginal , DI for Pre-eclampsia, [facility] Post Discharge Instructions Print Language: Dutch Providers Primary Care Provider: Cristy Pham Admit Provider: Maria Isabel August Attending Provider: Bee Shook
== END 2025-01-27 17:00 | disposition home or self-care (01) | DRG 807 ==
PROVIDERS: Admitting Provider Obstetrics & Gynecology; PCP Nurse Practitioner Family; Visit Provider Obstetrics & Gynecology
DX: O70.0 First degree perineal laceration during delivery (principal); Z37.0 Single live birth; Z3A.39 39 weeks gestation of pregnancy
CPT/HCPCS: 59025; 85025; 86592; 86850; 94761; G0283; J3010; J7120